=== PATIENT | female | born 1990 | race Caucasian/White ===

== ENCOUNTER 2020-09-17 09:19 | Outpatient (REF) | payer OTHER, SELFPAY ==
[2020-09-17 12:03] LABS: HBc Num1 0.07 S/CO (0.00-0.79); HIV AB/AG Nonreactive (Nonreactive); HIV Num 1 0.18 S/CO (0.00-0.99); Hepatitis B Core Antibody Nonreactive (Nonreactive)
[2020-09-18 04:03] LABS: Syphilis Screen Nonreactive (Nonreactive)
[2020-09-22 11:32] LABS: CT PCR NOT DETECTED (Not Detect.); NG PCR NOT DETECTED (Not Detect.)
== END 2020-09-17 09:20 | disposition home or self-care (01) ==
LOC: HO.HMGCLDS 09:19
PROVIDERS: PCP Internal Medicine; Visit Provider Internal Medicine
DX: Z01.419 Encounter for gynecological examination (general) (routine) without abnormal findings (principal); F41.1 Generalized anxiety disorder
CPT/HCPCS: 86704; 86780; 87389; 87491; 87591

== ENCOUNTER 2020-09-17 11:14 | Outpatient (REF) | payer OTHER, SELFPAY | END 2020-09-17 11:15 | disposition home or self-care (01) | LOC: HO.LAB 11:14 | PROVIDERS: Visit Provider Internal Medicine | DX: Z01.419 Encounter for gynecological examination (general) (routine) without abnormal findings (principal); F41.1 Generalized anxiety disorder | CPT/HCPCS: 88142 ==

== ENCOUNTER 2021-01-17 15:04 | Emergency (ER) | payer OTHER, SELFPAY ==
--- NOTE | ~2021-01-17 | CT_ITS ---
EXAMINATION: CT ABDOMEN AND PELVIS WITH CONTRAST CLINICAL INFORMATION: Right lower quadrant pain COMPARISON: None TECHNIQUE: Multidetector volumetric images were obtained from the superior aspect of the liver through the pubic symphysis following administration 85 mL of Omnipaque 350 intravenous contrast. Sagittal and coronal reformatted images were obtained on the technologist's workstation. Oral contrast: No This CT examination was performed using dose optimization techniques as appropriate, variously including the following: *Automated exposure control *Adjustment of mA and/or kV according to patient size (this includes techniques or standardized protocols for targeted exams where dose is matched to indication/reason for exam; i.e. extremities or head) *Use of iterative reconstruction technique DLP: 453 mGy-cm FINDINGS: LUNG BASES: The visualized lung bases are unremarkable. LIVER, GALLBLADDER, AND BILIARY TREE: The liver is normal in size, shape, and attenuation. No focal hepatic lesion or biliary ductal dilatation is present. The gallbladder is unremarkable with no evidence of radiopaque gallstones, gallbladder wall thickening, or obvious pericholecystic inflammatory changes. PANCREAS: Unremarkable. SPLEEN: Unremarkable. ADRENAL GLANDS: Unremarkable. KIDNEYS AND URETERS: The kidneys are normal in size, shape, and attenuation. No hydronephrosis, hydroureter, or calculi seen. No perinephric stranding. BLADDER: Unremarkable. GASTROINTESTINAL TRACT: The small and large bowel are unremarkable. The appendix is unremarkable. ABDOMINAL WALL: There is asymmetric abnormal expansion of the right rectus fracture in the lower abdomen and pelvis. The appearance is most suggestive of a a rectus hematoma this measures 7.5 cm transverse by 2.8 cm AP by 15 cm craniocaudal. There is some hyperdensity consistent with blood products but no active extravasation of contrast from the inferior epigastric artery which appears patent. LYMPH NODES: Normal. VASCULAR: Normal caliber abdominal aorta.. PELVIC VISCERA: 3.2 cm left renal cyst, a benign physiologic finding in a reproductive age female patient for which no imaging follow-up is required. Normal right ovary. Normal CT appearance of the uterus. OSSEOUS STRUCTURES: Minimal grade 1 anterolisthesis of L5 on S1. CT/CT abdomen pelvis w con IMPRESSION: There is asymmetric abnormal expansion of the right rectus muscle compared to the left with heterogeneous high density, most consistent with the rectus hematoma. This measures 7.5 x 2.8 x 15 cm. Recommend follow-up to confirm resolution.
[2021-01-17 15:13] VITALS: BP 133/93; PULSE 106; RESP 20; TEMP 36.9; O2SAT 100; BMI 22.4
[2021-01-17 15:50] LABS: MANUAL DIFF FLAG NO
[2021-01-17 15:53] LABS: Basophils Percent Auto 0.3 % (0-2); Eosinophils Absolute Auto 0.1 X10*3/uL (0.0-0.4); Eosinophils Percent Auto 0.4 % (0-4); Hematocrit 40.2 % (37-47); Hemoglobin 13.9 g/dl (12.0-16.0); Imm Gran Abs Auto 0.05 X10*3/uL (0.00-0.03); Imm Gran Pct Auto 0.4 % (0.0-0.4); Lymphocytes Absolute Auto 1.8 X10*3/uL (1.2-4.9); Lymphocytes Percent Auto 13.9 % (20-40); Mean Corpuscular HGB Conc 34.6 g/dl (31.0-35.0); Mean Corpuscular Hemoglobin 30.3 pg (27.0-33.0); Mean Corpuscular Volume 87.8 fL (80-98); Mean Platelet Volume 10.1 fL (9.4-12.3); Monocytes Absolute Auto 0.8 X10*3/uL (0.1-1.2); Monocytes Percent Auto 5.7 % (2-11); Neutrophils Absolute Auto 10.5 X10*3/uL (2.0-8.3); Neutrophils Percent Auto 79.3 % (45-73); Platelet Count 299 X10*3/uL (160-400); Red Blood Count 4.58 X10*6/uL (4.20-5.50); Red Cell Distribution Width 12.1 % (11.0-16.0); White Blood Count 13.2 X10*3/uL (4.8-10.8)
[2021-01-17 15:58] LABS: Glucose Urine UA NEG (NEG); Leukocyte Esterase Urine NEG (NEG); Nitrite Urine NEG (NEG); Urine Blood NEG (NEG); Urine Ketones NEG (NEG); Urine Protein NEG (NEG-TRACE)
[2021-01-17 16:01] LABS: Appearance Urine CLEAR; Color Urine YELLOW
[2021-01-17 16:02] LABS: UPreg QC Valid YES; Urine Pregnancy NEGATIVE (NEGATIVE)
[2021-01-17 16:15] LABS: Alanine Aminotransferase 26 U/L (0-31); Albumin Level 4.7 g/dL (3.5-5.0); Alkaline Phosphatase 55 U/L (39-117); Anion Gap 14 (12-20); Aspartate Amino Transferase 37 U/L (5-31); Bilirubin Direct 0.3 mg/dL (0.0-0.5); Bilirubin Total 0.7 mg/dL (0.0-1.0); Blood Urea Nitrogen 13 mg/dL (9-16); Calcium 9.3 mg/dL (8.4-10.2); Carbon Dioxide 25 mmol/L (22-29); Chloride 102 mmol/L (96-108); Creatinine Clr Calc Pharmacy 85.6; Estimated Glomerular Filt Rate > 60; Glucose Random 85 mg/dL (60-115); Lipase 9 U/L (8-78); Potassium 3.7 mmol/L (3.3-5.1); Sodium 137 mmol/L (135-145); Total Protein 7.4 g/dL (6.5-8.0)
--- NOTE | 2021-01-17 16:38 | ED_ITS ---
HPI - Abdominal Pain General Chief Complaint: Abdominal Pain Stated Complaint: Abdominal pain RLQ Time Seen by Provider: 01/17/21 16:30 Source: patient Mode of arrival: ambulatory Limitations: no limitations History of Present Illness HPI narrative: Pleasant 28-year-old female with history of A0 with retained products of conception in 2016 requiring D&C aside from this has history of anxiety not currently taking a medication presents ambulatory via triage with complaint of right lower quadrant pain states felt unwell yesterday this morning was doing a workout and felt a sharp pain directly afterwards. P ain described as sharp worsening with certain movements and on the right side lower quadrant. Denies any vomiting or diarrhea some nausea due to the pain. No symptoms no vaginal bleeding or discharge. Related Data Home Medications Medication Instructions Recorded Confirmed bupropion HCl 150 mg 24 hr tablet, 150 mg PO QAM 09/17/20 09/17/20 extended release Previous Rx's Medication Instructions Recorded norethindrone acetate 1 mg-ethinyl 1 tab PO DAILY #63 tab 09/17/20 estradiol 20 mcg tablet acetaminophen [Athenol] 650 mg PO .T.i.d. PRN #20 tab 01/17/21 oxycodone-acetaminophen [Endocet] 1 tab PO Q8H PRN #10 tab 01/17/21 Allergies Allergy/AdvReac Type Severity Reaction Status Date / Time blueberry Allergy Intermediate HIVES Unverified 07/02/20 18:22 Sulfa (Sulfonamide Allergy Unknown immunity Verified 03/17/20 00:00 Antibiotics) sulfamethoxazole AdvReac Unknown Verified 01/17/21 15:17 [From Bactrim] trimethoprim [From Bactrim] AdvReac Unknown Verified 01/17/21 15:17 blueberries as a fruit, not Allergy Unknown hives/urtic Uncoded 03/17/20 00:00 [place] Review of Systems Review of Systems Constitutional: No Weight loss, No Fever, No Chills, No Night Sweats, No Fatigue, No Malaise ENT/Mouth: No Hearing loss, No Ear Pain, No Nasal Congestion, No Sinus Pain, No Hoarseness, No sore throat, No Rhinorrhea, No Swallowing Difficulty Eyes: No Eye Pain, No Swelling, No Redness, No Foreign Body, No Discharge, No Vision Changes Cardiovascular: No Chest Pain, No SOB, No Dyspnea on Exertion, No Orthopnea, No Edema, No Palpitations Respiratory: No Cough, No Sputum, No Wheezing, No Smoke Exposure, No Dyspnea Gastrointestinal: + Nausea, No Vomiting, No Diarrhea, No Constipation, + abdominal Pain, No Hematochezia, No Melena Genitourinary: No Dysuria, No Urinary Frequency, No Hematuria, No Urinary Incontinence, No Urgency, No Flank Pain, No Urinary Flow Changes, No Hesitancy Musculoskeletal: No joint pain, No Myalgias, No Joint Swelling Skin: No Skin Lesions, No rash Neuro: No Weakness, No Numbness, No Paresthesias, No Loss of Consciousness, No Dizziness, No Headache Psych: No Social Issues Heme/Lymph: No Bruising, No Bleeding,No Lymphadenopathy Endocrine: No Polyuria, No Polydipsia, No Temperature Intolerance Yes all other systems are reviewed and are negative Physical Exam Vital Signs: Vital Signs: Last Vital Signs Temp 99.7 F 01/17/21 16:45 Pulse 105 H 01/17/21 18:15 Resp 16 01/17/21 18:15 BP 114/65 01/17/21 18:15 Pulse Ox 98 01/17/21 18:15 Body Mass Index 22.4 Reviewed Const: General: cooperative and healthy appearing; No acute distress or intoxicated appearing Nutritional Appearance: average body habitus Orientation/consciousness: patient oriented x3 HENMT: Head: Yes normal to inspection Ears: hearing grossly normal bilaterally Eyes: General: appearance normal, both eyes and all related structures Vis ual Zaidi: normal visual zaidi by confrontation Neck: Neck: Yes normal visual inspection, No positive Brudzinski's sign, No positive Kernig's sign and No tender Thyroid: Thyroid normal Chest: Chest palpation & inspection: normal inspection of the chest Resp: Effort & Inspection: normal respiratory effort Auscultation: clear to auscultation bilaterally Cardio: Jugular venous distension: no JVD Rhythm: regular rhythm Heart sounds: S1 normal heart sound present and S2 normal heart sound present GI: Inspection: Yes normal to inspection Palpation (GI): Tenderness to palpation present (GI) in the RLQ; Patel's sign negative Percussion: Yes normal to percussion Auscultation: normal bowel sounds : General: Yes no CVA tenderness Back/Spine/Pelvis: Back: no CVA tenderness Skin: General skin exam: no rashes or lesions noted Neuro: General: patient oriented x3 Extrem: General: Yes normal to inspection Course Consultations Consultation #1: Case discussed with general surgery Dr. Huertas; CT findings reviewed recommendation for activity limitations, avoiding NSAID and precautions with outpatient follow-up no immediate intervention needed. Overall self- limiting injury. MDM - Abdominal Pain Differential Diagnosis Differential diagnosis: Likely abdominal pain and acute appendicitis; Unlikely aortic dissection, bowel perforation, calculus of kidney, constipation, diverticulitis, endometriosis, gastroenteritis, mesenteric ischemia, ovarian cyst, peptic ulcer disease, renal colic and small bowel obstruction Medical Records Attestation: I reviewed the patient's medical records. Lab Data Attestation: I reviewed the patient's lab results. Result diagrams: 01/17/21 15:33 01/17/21 15:33 Labs: Lab Results 01/17/21 01/17/21 01/17/21 Range/Units 15:33 15:33 15:33 WBC 13.2 H (4.8-10.8) X10*3/uL RBC 4.58 (4.20-5.50) X10*6/uL Hgb 13.9 (12.0-16.0) g/dl Hct 40.2 (37-47) % MCV 87.8 (80-98) fL MCH 30.3 (27.0-33.0) pg MCHC 34.6 (31.0-35.0) g/dl RDW 12.1 (11.0-16.0) % Plt Count 299 (160-400) X10*3/uL MPV 10.1 (9.4-12.3) fL Immature Gran % (Auto) 0.4 (0.0-0.4) % Neut % (Auto) 79.3 H (45-73) % Lymph % (Auto) 13.9 L (20-40) % [place] % (Auto) 5.7 (2-11) % Eos % (Auto) 0.4 (0-4) % Baso % (Auto) 0.3 (0-2) % Lymph # (Auto) 1.8 (1.2-4.9) X10*3/uL [place] # (Auto) 0.8 (0.1-1.2) X10*3/uL Eos # (Auto) 0.1 (0.0-0.4) X10*3/uL Baso # (Auto) 0.0 (0.0-0.2) X10*3/uL Abs Immat Gran (auto) 0.05 H (0.00-0.03) X10*3/uL Absolute Neuts (auto) 10.5 H (2.0-8.3) X10*3/uL Absolute Nucleated RBC 0.000 (0.0-0.012) X10*3/uL Nucleated RBC % (auto) 0.0 (0.0-0.2) /100WBC Hold Blue Top SEE NOTE Sodium 137 (135-145) mmol/L Potassium 3.7 (3.3-5.1) mmol/L Chloride 102 (96-108) mmol/L Carbon Dioxide 25 (22-29) mmol/L Anion Gap 14 (12-20) BUN 13 (9-16) mg/dL Creatinine 0.78 (0.5-1.4) mg/dL Estim Creat Clear Calc 85.6 Estimated GFR > 60 Random Glucose 85 (60-115) mg/dL Calcium 9.3 (8.4-10.2) mg/dL Total Bilirubin 0.7 (0.0-1.0) mg/dL Direct Bilirubin 0.3 (0.0-0.5) mg/dL AST 37 H (5-31) U/L ALT 26 (0-31) U/L Alkaline Phosphatase 55 (39-117) U/L Total Protein 7.4 (6.5-8.0) g/dL Albumin 4.7 (3.5-5.0) g/dL Lipase 9 (8-78) U/L Urine Color Urine Appearance Urine pH (5.0-8.0) Ur Specific [place] (1.005-1.025) Urine Protein (NEG-TRACE) MG/DL Urine Glucose (UA) (NEG) MG/DL Urine Ketones (NEG) MG/DL Urine Blood (NEG) Urine Nitrite (NEG) Ur Leukocyte Esterase (NEG) Urine Test (NEGATIVE) 01/17/21 01/17/21 Range/Units 15:33 15:33 WBC (4.8-10.8) X10*3/uL RBC (4.20-5.50) X10*6/uL Hgb (12.0-16.0) g/dl Hct (37-47) % MCV (80-98) fL MCH (27.0-33.0) pg MCHC (31.0-35.0) g/dl RDW (11.0-16.0) % Plt Count (160-400) X10*3/uL MPV (9.4-12.3) fL Immature Gran % (Auto) (0.0-0.4) % Neut % (Auto) (45-73) % Lymph % (Auto) (20-40) % [place] % (Auto) (2-11) % Eos % (Auto) (0-4) % Baso % (Auto) (0-2) % Lymph # (Auto) (1.2-4.9) X10*3/uL [place] # (Auto) (0.1-1.2) X10*3/uL Eos # (Auto) (0.0-0.4) X10*3/uL Baso # (Auto) (0.0-0.2) X10*3/uL Abs Immat Gran (auto) (0.00-0.03) X10*3/uL Absolute Neuts (auto) (2.0-8.3) X10*3/uL Absolute Nucleated RBC (0.0-0.012) X10*3/uL Nucleated RBC % (auto) (0.0-0.2) /100WBC Hold Blue Top Sodium (135-145) mmol/L Potassium (3.3-5.1) mmol/L Chloride (96-108) mmol/L Carbon Dioxide (22-29) mmol/L Anion Gap (12-20) BUN (9-16) mg/dL Creatinine (0.5-1.4) mg/dL Estim Creat Clear Calc Estimated GFR Random Glucose (60-115) mg/dL Calcium (8.4-10.2) mg/dL Total Bilirubin (0.0-1.0) mg/dL Direct Bilirubin (0.0-0.5) mg/dL AST (5-31) U/L ALT (0-31) U/L Alkaline Phosphatase (39-117) U/L Total Protein (6.5-8.0) g/dL Albumin (3.5-5.0) g/dL Lipase (8-78) U/L Urine Color YELLOW Urine Appearance CLEAR Urine pH 6.0 (5.0-8.0) Ur Specific [place] 1.020 (1.005-1.025) Urine Protein NEG (NEG-TRACE) MG/DL Urine Glucose (UA) NEG (NEG) MG/DL Urine Ketones NEG (NEG) MG/DL Urine Blood NEG (NEG) Urine Nitrite NEG (NEG) Ur Leukocyte Esterase NEG (NEG) Urine Test NEGATIVE (NEGATIVE) Imaging Data Abdominal/pelvis CT: Radiologist's impression: [address] [id number] Scan ReportSigned Patient: Nando Bowser#: [id number]: 1990Acct:[id number]/Sex: 30 / FADM Date: 01/17/21Loc: EDAttst[address] Dr: Ordering Physician: Anders Johnson NP Date of Service: 01/17/21 Procedure(s): CT abdomen pelvis w con Accession Number(s): [id number] cc: Anders Johnson TRAFFIC CIRCUIT ENGINEER~ EXAMINATION: CT ABDOMEN AND PELVIS WITH CONTRAST CLINICAL INFORMATION: Right lower quadrant pain COMPARISON: None TECHNIQUE: Multidetector volumetric images were obtained from the superior aspect of the liver through the pubic symphysis following administration 85 mL of Omnipaque 350 intravenous contrast. Sagittal and coronal reformatted images were obtained on the technologist's workstation. Oral contrast: No This CT examination was performed using dose optimization techniques as appropriate, variously including the following: *Automated exposure control *Adjustment of mA and/or kV according to patient size (this includes techniques or standardized protocols for targeted exams where dose is matched to indication/reason for exam; i.e. extremities or head) *Use of iterative reconstruction technique DLP: 453 mGy-cm FINDINGS: LUNG BASES: The visualized lung bases are unremarkable. LIVER, GALLBLADDER, AND BILIARY TREE: The liver is normal in size, shape, and attenuation. No focal hepatic lesion or biliary ductal dilatation is present. The gallbladder is unremarkable with no evidence of radiopaque gallstones, gallbladder wall thickening, or obvious pericholecystic inflammatory changes. PANCREAS: Unremarkable. SPLEEN: Unremarkable. ADRENAL GLANDS: Unremarkable. KIDNEYS AND URETERS: The kidneys are normal in size, shape, and attenuation. No hydronephrosis, hydroureter, or calculi seen. No perinephric stranding. BLADDER: Unremarkable. GASTROINTESTINAL TRACT: The small and large bowel are unremarkable. The appendix is unremarkable. ABDOMINAL WALL: There is asymmetric abnormal expansion of the right rectus fracture in the lower abdomen and pelvis. The appearance is most suggestive of a a rectus hematoma this measures 7.5 cm transverse by 2.8 cm AP by 15 cm craniocaudal. There is some hyperdensity consistent with blood products but no active extravasation of contrast from the inferior epigastric artery which appears patent. LYMPH NODES: Normal. VASCULAR: Normal caliber abdominal aorta.. PELVIC VISCERA: 3.2 cm left renal cyst, a benign physiologic finding in a reproductive age female patient for which no imaging follow-up is required. Normal right ovary. Normal CT appearance of the uterus. OSSEOUS STRUCTURES: Minimal grade 1 anterolisthesis of L5 on S1. CT/CT abdomen pelvis w con IMPRESSION: There is asymmetric abnormal expansion of the right rectus muscle compared to the left with heterogeneous high density, most consistent with the rectus hematoma. This measures 7.5 x 2.8 x 15 cm. Recommend follow-up to confirm resolution. Dictated By:XIN ZUNIGA MDSigned By:<Electronically signed by XIN ZUNIGA MD in OV>01/17/21 1749 DD/ 1636TD/TT: Assessment Coordinator: JOCY Discharge Plan Discharge Clinical Impression: Injury of muscle of abdomen Hematoma of rectus sheath Qualifiers: Encounter type: initial encounter Qualified Code(s): S30.1XXA - Contusion of abdominal wall, initial encounter Patient Disposition: Home, Self-Care Instructions: Muscle Strain (ED), Hematoma (ED) Additional Instructions: Cold compresses No strenuous activity Avoid nonsteroidal anti-inflammatory medications such as ibuprofen, Aleve Take Tylenol for pain that is mild For severe pain take oxycodone Return to emergency room if you have any fever, nausea, vomiting or worsening pain Otherwise follow-up with outpatient provider as discussed Thank you Prescriptions: New oxycodone-acetaminophen [Endocet] 5-325 mg tablet 1 tab PO Q8H PRN (Reason: pain) Qty: 10 RF: 0 acetaminophen [Athenol] 325 mg tablet 650 mg PO .T.i.d. PRN (Reason: pain) Qty: 20 RF: 0 No Action bupropion HCl [Wellbutrin XL] 150 mg tablet extended release 24 hr 150 mg PO QAM RF: 0 norethindrone ac-eth estradiol [Loestrin 11/04 ()] 1-20 mg-mcg tablet 1 tab PO DAILY Qty: 63 RF: 3 Referrals: Ramon Jensen MD [Physician] - 1 week Stand Alone Forms: Work/School Release PMFSH Past Medical History Medical History Annual physical exam Benign heart murmur Depression ABRIL (generalized anxiety disorder) Post depression Vitamin B 12 deficiency Vitamin D deficiency Surgical History History of dilation and curettage History of tooth extraction Family History Family History (Updated 08/04/20 @ 13:20 by Sharifa Max, RMA, PIN MACHINE TENDER) Father Medical history non-contributory Mother History of ITP Cirrhosis Head injury Maternal Grandmother Cancer Maternal Grandfather No problems noted. Paternal Grandfather No problems noted. Paternal Grandmother No problems noted. Sister No problems noted. Daughter No problems noted. Social History Social History (Updated 09/17/20 @ 08:59 by Ksenia Grider MD) Alcohol intake: never Smoking Status: Current every day smoker Use of substances other than those prescribed or required for medical reasons: No Advance Directives: No Advance Directives Information Provided: No
[2021-01-17 16:45] VITALS: BP 130/91; PULSE 104; RESP 16; TEMP 37.6; O2SAT 100
[2021-01-17 16:57] VITALS: RESP 14
[2021-01-17] MEDS: 0.9 % Sodium Chloride 1,000 ML 999 ML IV (16:57)
[2021-01-17] MEDS: ondansetron HCL 4 MG/2 ML VIAL IVPUSH (16:57)
[2021-01-17] MEDS: Morphine Sulfate 4 MG/ML CARTRIDGE IVPUSH (16:57)
[2021-01-17 17:01] VITALS: BP 132/80; PULSE 117; RESP 16; O2SAT 100
[2021-01-17 18:03] VITALS: RESP 14
[2021-01-17 18:15] VITALS: BP 114/65; PULSE 105; RESP 16; O2SAT 98
== END 2021-01-17 19:06 | disposition home or self-care (01) ==
PROVIDERS: Emergency Provider Internal Medicine
DX: S39.001A Unspecified injury of muscle, fascia and tendon of abdomen, initial encounter (principal); S30.1XXA Contusion of abdominal wall, initial encounter; Y93.B9 Activity, other involving muscle strengthening exercises; Y92.019 Unspecified place in single-family (private) house as the place of occurrence of the external cause; Y99.9 Unspecified external cause status
CPT/HCPCS: 36415; 74177; 80053; 80076; 81003; 81025; 82248; 83690; 85025; 96361; 96374; 96375; 99284; 99285; J2270; J2405

== ENCOUNTER → 2021-01-20 10:15 | Outpatient (BNVA) | payer OTHER, SELFPAY | PROVIDERS: Visit Provider Surgery ==

== ENCOUNTER 2021-06-22 18:06 | Outpatient (REF) | payer OTHER, SELFPAY | END 2021-06-22 18:07 | disposition home or self-care (01) | LOC: HO.LNP 18:06 | PROVIDERS: Visit Provider Internal Medicine | DX: Z20.822 Contact with and (suspected) exposure to COVID-19 (principal); J06.9 Acute upper respiratory infection, unspecified | CPT/HCPCS: U0003; U0005 ==

== ENCOUNTER 2021-10-06 16:43 | Outpatient (REF) | payer OTHER, SELFPAY ==
[2021-10-06 17:32] LABS: Influenza A PCR NEGATIVE (Negative); Influenza B PCR NEGATIVE (Negative); Resp Syncy Virus RNA Qual PCR NEGATIVE (Negative); SARS COV2 PCR INHOUSE NEGATIVE (Negative)
== END 2021-10-06 16:44 | disposition home or self-care (01) ==
LOC: HO.LNP 16:43
PROVIDERS: Visit Provider Physician Assistant Medical
DX: Z20.822 Contact with and (suspected) exposure to COVID-19 (principal); J06.9 Acute upper respiratory infection, unspecified
CPT/HCPCS: 0241U

== ENCOUNTER 2022-07-09 09:52 | Outpatient (REF) | payer OTHER, SELFPAY ==
[2022-07-09 11:11] LABS: MANUAL DIFF FLAG NO
[2022-07-09 11:20] LABS: Basophils Percent Auto 0.5 % (0-2); Eosinophils Absolute Auto 0.1 X10*3/uL (0.0-0.4); Eosinophils Percent Auto 2.3 % (0-4); Hematocrit 40.3 % (37.0-47.0); Hemoglobin 13.6 g/dl (12.0-16.0); Imm Gran Abs Auto 0.02 X10*3/uL (0.00-0.03); Imm Gran Pct Auto 0.3 % (0.0-0.4); Lymphocytes Absolute Auto 2.4 X10*3/uL (1.2-4.9); Lymphocytes Percent Auto 39.2 % (20-40); Mean Corpuscular HGB Conc 33.7 g/dl (31.0-35.0); Mean Corpuscular Hemoglobin 29.1 pg (27.0-33.0); Mean Corpuscular Volume 86.1 fL (80.0-98.0); Mean Platelet Volume 10.1 fL (9.4-12.3); Monocytes Absolute Auto 0.6 X10*3/uL (0.1-1.2); Monocytes Percent Auto 9.7 % (2-11); Neutrophils Absolute Auto 2.9 x10*3/uL (2.0-8.3); Platelet Count 305 X10*3/uL (160-400); Red Blood Count 4.68 X10*6/uL (4.20-5.50); Red Cell Distribution Width 12.6 % (11.0-16.0); White Blood Count 6.1 X10*3/uL (4.8-10.8)
[2022-07-09 11:32] LABS: Alanine Aminotransferase 18 U/L (0-31); Albumin Level 4.6 g/dL (3.5-5.0); Alkaline Phosphatase 63 U/L (39-117); Anion Gap 13 (12-20); Aspartate Amino Transferase 18 U/L (5-31); Bilirubin Total 0.4 mg/dL (0.0-1.0); Blood Urea Nitrogen 11 mg/dL (9-16); Calcium 9.4 mg/dL (8.4-10.2); Carbon Dioxide 24 mmol/L (22-29); Chloride 106 mmol/L (96-108); Cholesterol 192 mg/dL; Estimated Glomerular Filt Rate > 60; Glucose Fasting 88 mg/dL (60-99); HDL Cholesterol 48 mg/dL; LDL Cholesterol Calculated 134 mg/dl; Potassium 4.4 mmol/L (3.3-5.1); Sodium 139 mmol/L (135-145); Total Protein 7.2 g/dL (6.5-8.0); Triglycerides 53 mg/dL
[2022-07-09 12:22] LABS: Erythrocyte Sedimentation Rate 10 MM/HR (0-20)
== END 2022-07-09 09:53 | disposition home or self-care (01) ==
LOC: HO.HMGCLDS 09:52
PROVIDERS: PCP Internal Medicine; Visit Provider Internal Medicine
DX: Z00.00 Encounter for general adult medical examination without abnormal findings (principal)
CPT/HCPCS: 36415; 80053; 80061; 85025; 85652

== ENCOUNTER 2022-07-20 10:27 | Outpatient (REF) | payer OTHER, SELFPAY ==
--- NOTE | ~2022-07-20 | US_ITS ---
Indication: Pain and swelling in the right axillary region EXAMINATION: Directed ultrasound right axillary region. The patient directs the piano mover to the right axillary region. There is a prominent lymph node noted here. 2.6 x 0.7 x 1.5 cm. The cortex does not appear abnormally thickened. No fluid collection. No mass otherwise is seen. The left axillary region is scanned by the piano mover as well. Again prominent lymph nodes. One measuring 2.3 x 0.9 x 0.6 cm. Other 1.8 x 0.5 x 1.2 cm. US/US extremity nonvascular dunlap IMPRESSION: A prominent lymph node is noted in the right axillary region.. No fluid collection is identified. No obvious mass. Correlation recommended clinically. If further evaluation is warranted recommend CT. It should be noted the breast tissue is not scanned on this study
== END 2022-07-20 10:28 | disposition home or self-care (01) ==
LOC: HO.HMGCX 10:27
PROVIDERS: PCP Internal Medicine; Visit Provider Internal Medicine
DX: Z00.00 Encounter for general adult medical examination without abnormal findings (principal); R59.0 Localized enlarged lymph nodes
CPT/HCPCS: 76882

== ENCOUNTER 2022-07-27 08:29 | Outpatient (REF) | payer OTHER, SELFPAY ==
--- NOTE | ~2022-07-27 | MM_ITS ---
EXAMINATION: MM DIAGNOSTIC DIGITAL BREAST TOMOSYNTHESIS, BILATERAL US DIAGNOSTIC ULTRASOUND BREAST, BILATERAL CLINICAL INFORMATION: 31-year-old with axillary fullness, possible adenopathy. No prior breast imaging. No known family history breast cancer. The lifetime risk of breast cancer based on the Tyrer-Cuzick Model is 11%. COMPARISON: Right axillary ultrasound 07/20/2022. No prior mammography. TECHNIQUE: Digital breast tomosynthesis is performed in both the craniocaudal and mediolateral oblique views along with computer-aided detection (CAD). Synthesized 2D images are generated from the tomosynthesis. Ultrasound is performed using grayscale imaging and color Doppler without and with harmonics. Both axilla are evaluated. In addition, upper left breast and upper right breast are also interrogated for further assessment mammographic findings. FINDINGS: Mammography: The breasts are heterogeneously dense, which may obscure small masses (ACR BI-RADS breast composition Category c). Breast tissue composition borders on average fibroglandular. There is no architectural abnormality or abnormal calcifications. The axilla and skin contours are unremarkable. No skin thickening or coarsening of the Henrik's ligaments. Left breast has small smooth circumscribed nodule mid 11:00 position approximately 0.6 cm. Right breast has oval smooth mass anterior 11:00 position measuring approximately 1 cm. Ultrasound: Ultrasound bilateral axilla demonstrates no lymphadenopathy. There are expected nodes seen in both axilla with normal kayla architecture and color flow. There is no abnormally enlarged or thickened node. Ultrasound right breast demonstrates simple cyst 11:00 position 3 cm from nipple corresponding to the finding on mammography. Cyst measures 1.0 x 0.6 cm with increased through-transmission of sound and no associated septation or solid component or color flow. There are 2 tiny adjacent satellite cyst. Ultrasound left breast demonstrates small solid nodule 11:00 position 6 cm from nipple measuring 0.5 x 0.4 cm. No increased or decreased through transmission of sound. Margins are smooth. This corresponds to finding on mammography. Management: Results are discussed with the patient at time of visit. The left breast nodule is most likely a fibroadenoma. Management options discussed. Plan is for short interval follow-up left breast ultrasound in 6 months to confirm stability. Bilateral axillary fullness may be managed based on the clinical impression. MM/MM tomosynthesis diagnostic BI IMPRESSION: Right: -No mammographic evidence of malignancy. -No axillary adenopathy. -Incidental simple cyst anterior 11:00 position. Left: -Subcentimeter solid nodule 11:00 position, likely fibroadenoma. -No axillary adenopathy. ASSESSMENT: BI-RADS 3: Probably Benign RECOMMENDATION: 1. Bilateral axillary fullness may be managed based on the clinical impression as needed. 2. Targeted left breast ultrasound in 6 months. This patient's information was entered into a reminder system with a target due date for their next breast imaging.
== END 2022-07-27 08:30 | disposition home or self-care (01) ==
LOC: HO.MAMMO 08:29
PROVIDERS: PCP Internal Medicine; Visit Provider Internal Medicine
DX: R59.0 Localized enlarged lymph nodes (principal)
CPT/HCPCS: 76642; 77062; 77066

== ENCOUNTER 2022-08-15 08:47 | Outpatient (REF) | payer OTHER, SELFPAY ==
[2022-08-15 12:31] LABS: Syphilis Screen Nonreactive (Nonreactive)
[2022-08-15 13:49] LABS: CT PCR NOT DETECTED (Not Detect.); NG PCR NOT DETECTED (Not Detect.)
[2022-08-16 08:30] LABS: HIV AB/AG Nonreactive (Nonreactive); HIV Num 1 0.08 S/CO (0.00-0.99)
== END 2022-08-15 08:48 | disposition home or self-care (01) ==
LOC: HO.HMGCLDS 08:47
PROVIDERS: PCP Internal Medicine; Visit Provider Internal Medicine
DX: Z11.3 Encounter for screening for infections with a predominantly sexual mode of transmission (principal); Z11.4 Encounter for screening for human immunodeficiency virus [HIV]
CPT/HCPCS: 36415; 86780; 87389; 87491; 87591

== ENCOUNTER 2023-01-26 13:04 | Outpatient (REF) | payer OTHER, SELFPAY ==
--- NOTE | ~2023-01-26 | US_ITS ---
EXAMINATION: US DIAGNOSTIC ULTRASOUND BREAST, LEFT CLINICAL INFORMATION: 32-year-old for short interval six-month follow-up small probable benign nodule 11:00 left breast. No known family history breast cancer. TC score 11%. COMPARISON: Bilateral mammography and bilateral breast ultrasound 07/27/2022. TECHNIQUE: Ultrasound left breast is targeted to the upper breast using grayscale imaging and color Doppler. FINDINGS: The nodule for follow-up 11:00 position 6 cm from nipple is stable. This is round, mildly hypoechoic and measuring approximately 5 x 4 mm. There is no associated peripheral or internal color flow. No increased or decreased through transmission of sound. This may represent fibroadenoma or possibly a foam cyst with apocrine metaplasia. Will continue planned surveillance with next left breast ultrasound in 6 months (representing a 1 year follow-up exam). Results are provided to the patient at time of visit by the technologist. US/US breast LT limited IMPRESSION: Stable 5 mm nodule 11:00 left breast. ASSESSMENT: BI-RADS 3: Probably Benign RECOMMENDATION: Left breast ultrasound in 6 months. This patient's information was entered into a reminder system with a target due date for their next breast imaging.
== END 2023-01-26 13:05 | disposition home or self-care (01) ==
LOC: HO.MAMMO 13:04
PROVIDERS: PCP Internal Medicine; Visit Provider Internal Medicine
DX: N63.22 Unspecified lump in the left breast, upper inner quadrant (principal)
CPT/HCPCS: 76642

== ENCOUNTER 2023-05-30 11:51 | Outpatient (AMB) | payer OTHER, SELFPAY ==
--- NOTE | 2023-05-30 12:58 | AM.OFFWIN_ITS ---
Intake Vital Signs 05/30/23 12:59 Weight 137 lb BP 110/70 Blood Pressure Location Rt brachial Position Sitting Pulse 100 Pulse Source Pulse Oximeter Pulse Oximetry (%) 98 Oxygen Delivery Method Room Air Intake Visit Reasons: EP, Pain left side of neck lobby Intake Note: Patient here for pain on left side of neck, she states she gets weird pressure that comes over her head which comes and goes. no known injuries. Patient Tobacco Use Status: Never used Tobacco Allergies blueberry Allergy (Intermediate, Verified 05/30/23 13:00) HIVES Sulfa (Sulfonamide Antibiotics) Allergy (Unknown, Verified 05/30/23 13:00) immunity morphine Allergy (Verified 05/30/23 13:00) chest pressure, panic attack sulfamethoxazole [From Bactrim] Adverse Reaction (Verified 05/30/23 13:00) Unknown trimethoprim [From Bactrim] Adverse Reaction (Verified 05/30/23 13:00) Unknown blueberries as a fruit, not ju Allergy (Unknown, Uncoded 05/30/23 13:00) hives/urticaria Do you need a note to return to daycare/school/sports/work: No HPI EP, Pain left side of neck lobby HPI Details 32-year-old female patient presents today for a sick visit. She reports a 3 day history tenderness underneath her left jaw line. She denies any tooth or mouth pain. She recently went to the dentist for a cleaning with no acute findings. She denies any fever or chills. She denies any pain with swallowing. She reports radiates over her head and causes pressure that is intermittent. She reports increasing lethargy over the last year. Denies any new meds. Smokes nicotine via vape. FORMERLY [facility] Medical History Annual physical exam Benign heart murmur Depression ABRIL (generalized anxiety disorder) Post depression Rectus sheath hematoma Vitamin B 12 deficiency Vitamin D deficiency Surgical History History of dilation and curettage History of tooth extraction Family History Father Medical history non-contributory Mother History of ITP Cirrhosis Head injury Maternal Grandmother Cancer Maternal Grandfather No problems noted. Paternal Grandfather No problems noted. Paternal Grandmother No problems noted. Sister No problems noted. Daughter No problems noted. Social History Household Members Other:: , 4 y/o and 18 y/o stepson, well balanced, works from home Housing: House Alcohol intake: never Patient Tobacco Use Status: Never used Tobacco e-Cigarette/Vaping Use: Currently Using Current occupational status: employed Cognitive needs: No Hearing needs: No Vision needs: Yes Review of Systems Const All systems reviewed & are unremarkable except as noted in HPI and below Physical Exam Vital Signs: Last Vital Signs Pulse 100 05/30/23 12:59 BP 110/70 05/30/23 12:59 Pulse Ox 98 05/30/23 12:59 Oxygen Delivery Method Room Air 05/30/23 12:59 Const General: cooperative and no acute distress Nutritional Appearance: average body habitus Orientation/consciousness: patient oriented x3 Limitations: no limitations HEENT Head: Yes normal to inspection Ears: hearing grossly normal bilaterally, external ears normal and TM abnormal wth effusion purulent on the left and erythematous on the left General nose exam: Normal external nose present, Normal nares present and Normal nasal mucous membranes and turbinates present Face and sinus: Yes normal facial exam Face images: 1. tenderness Mouth: Normal oral and palatal mucosa present and moist mucous membranes Throat: Yes posterior oropharynx normal Neck Neck: Yes lymphadenopathy (left ant cervical) Thyroid: Thyroid normal Resp Effort & Inspection: normal respiratory effort and able to speak in complete sentences Skin General skin exam: no rashes or lesions noted Neuro General: patient oriented x3 and gait normal Extrem General: Yes capillary refill normal and Yes no clubbing, cyanosis or edema Psych Appearance: grossly normal Mental Status: mental status grossly normal Speech and movement: Normal speech and movement present Assessment & Plan Assessment & Plan (1) Neck pain on left side: Code(s): M54.2 - Cervicalgia Plan: Patient has tenderness on the left side of her neck under her jaw line. She has very mild left anterior cervical lymphadenopathy. This also could be muscular in nature as it seems to involve her sternocleidomastoid. She also has a left otitis media with purulence effusion. This could be the source of her pain. I will start her on antibiotics today for this. It does not appear she has an odontogenic infection. If she does not improve with treatment or if symptoms worsen she should return to the clinic for further evaluation. She agrees to plan. (2) Left otitis media with effusion: Code(s): H65.92 - Unspecified nonsuppurative otitis media, left ear (3) Fatigue: Code(s): R53.83 - Other fatigue Qualifiers: Fatigue type: unspecified Qualified Code(s): R53.83 - Other fatigue Plan: I am going to order some given her symptoms today, and report ongoing and worsening fatigue over the last year. I would like her to follow-up with her PCP Dr. Grider for this. Orders: Orders Complete Blood Count Auto Diff Today R53.83 - Other fatigue TSH reflex Free T4 Today R53.83 - Other fatigue Basic Metabolic Panel Today R53.83 - Other fatigue Medications: New amoxicillin-pot clavulanate 875-125 mg 1 tab PO BID 7 days 14 tabs 0RF H65.92 - Unspecified nonsuppurative otitis media, left ear Coding Level of Care Code Est Pt Level 3 (18077) Diagnoses Neck pain on left side M54.2 Left otitis media with effusion H65.92 Fatigue R53.83 Fatigue type: unspecified
[2023-05-30 12:59] VITALS: BP 110/70; PULSE 100; O2SAT 98
== END 2023-05-30 13:42 | disposition home or self-care (01) ==
PROVIDERS: PCP Internal Medicine; Visit Provider Nurse Practitioner Family
DX: M54.2 Cervicalgia (principal); H65.92 Unspecified nonsuppurative otitis media, left ear; R53.83 Other fatigue
CPT/HCPCS: 99213

== ENCOUNTER 2023-05-30 13:35 | Outpatient (REF) | payer OTHER, SELFPAY ==
[2023-05-30 16:05] LABS: MANUAL DIFF FLAG NO
[2023-05-30 16:14] LABS: Basophils Absolute Auto 0.1 X10*3/uL (0.0-0.2); Basophils Percent Auto 0.9 % (0-2); Eosinophils Absolute Auto 0.1 X10*3/uL (0.0-0.4); Eosinophils Percent Auto 0.9 % (0-4); Hematocrit 40.8 % (37.0-47.0); Imm Gran Abs Auto 0.02 X10*3/uL (0.00-0.03); Imm Gran Pct Auto 0.4 % (0.0-0.4); Lymphocytes Absolute Auto 1.2 X10*3/uL (1.2-4.9); Lymphocytes Percent Auto 20.6 % (20-40); Mean Corpuscular HGB Conc 34.3 g/dl (31.0-35.0); Mean Corpuscular Hemoglobin 29.8 pg (27.0-33.0); Mean Corpuscular Volume 86.8 fL (80.0-98.0); Mean Platelet Volume 10.2 fL (9.4-12.3); Monocytes Absolute Auto 0.5 X10*3/uL (0.1-1.2); Monocytes Percent Auto 9.1 % (2-11); Neutrophils Absolute Auto 3.8 x10*3/uL (2.0-8.3); Neutrophils Percent Auto 68.1 % (45-73); Platelet Count 244 X10*3/uL (160-400); Red Cell Distribution Width 11.9 % (11.0-16.0); White Blood Count 5.6 X10*3/uL (4.8-10.8)
[2023-05-30 16:36] LABS: Anion Gap 13 (12-20); Blood Urea Nitrogen 7 mg/dL (9-16); Calcium 9.2 mg/dL (8.4-10.2); Carbon Dioxide 26 mmol/L (22-29); Chloride 104 mmol/L (96-108); Estimated Glomerular Filt Rate > 60; Glucose Random 83 mg/dL (60-115); Potassium 3.8 mmol/L (3.3-5.1); Sodium 139 mmol/L (135-145)
[2023-05-30 16:55] LABS: TSH reflex Free T4 1.65 uIU/mL (0.32-4.0)
== END 2023-05-30 13:36 | disposition home or self-care (01) ==
LOC: HO.HMGCLDS 13:35
PROVIDERS: PCP Internal Medicine; Visit Provider Nurse Practitioner Family
DX: R53.83 Other fatigue (principal)
CPT/HCPCS: 36415; 80048; 84443; 85025

== ENCOUNTER 2023-07-27 13:24 | Outpatient (REF) | payer OTHER, SELFPAY ==
--- NOTE | ~2023-07-27 | US_ITS ---
EXAMINATION: US DIAGNOSTIC ULTRASOUND BREAST, LEFT CLINICAL INFORMATION: Follow-up small complicated cyst versus fibroadenoma left breast, 11:00 axis, 6 cm from the nipple.. COMPARISON: 01/26/2023, 07/27/2022, mammography dated 07/27/2022. TECHNIQUE: Ultrasound of the breast is performed with real-time muse scale imaging and color Doppler. Specific attention was given to the 11:00 axis of the left breast. FINDINGS: There is redemonstration of a rounded circumscribed cyst or fibroadenoma with low-level internal echoes, no internal color Doppler signal, good through transmission, circumscribed margins, measuring a stable 5 x 4 x 4 cm. There has been absolutely no change in this finding since the prior 2 ultrasounds dating back to 09/26/2022. This is stable over one year. Recommend one-year follow-up targeted left breast ultrasound to ensure stability over 2 years, which will establish benignity. Results were provided to the patient at time of visit by the technologist. 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 This demonstrates one-year stability, with maximal measurement of 5 mm. Recommend 1 year follow-up targeted left breast ultrasound to ensure stability and establish benignity. ASSESSMENT: BI-RADS 3: Probably Benign RECOMMENDATION: Diagnostic targeted left sonography at time of next annual exam, due in 12 months.
== END 2023-07-27 13:25 | disposition home or self-care (01) ==
LOC: HO.MAMMO 13:24
PROVIDERS: PCP Internal Medicine; Visit Provider Internal Medicine
DX: N63.22 Unspecified lump in the left breast, upper inner quadrant (principal)
CPT/HCPCS: 76642

== ENCOUNTER → 2023-07-27 13:30 | Outpatient (BNV) | payer OTHER, SELFPAY | PROVIDERS: PCP Internal Medicine; Visit Provider Radiology Diagnostic Radiology | DX: N60.09 Solitary cyst of unspecified breast (principal) | CPT/HCPCS: 76642 ==

== ENCOUNTER 2023-09-30 11:04 | Outpatient (REF) | payer OTHER, SELFPAY ==
[2023-09-30 13:38] LABS: Appearance Urine Clear; Color Urine Yellow; Glucose Urine UA Negative (Negative); Leukocyte Esterase Urine Negative (Negative); Nitrite Urine Negative (Negative); Specific Gravity - Urine 1.025 (1.005-1.025); Urine Blood Negative (Negative); Urine Ketones Negative (Negative); Urine Protein Negative (Neg-Trace)
== END 2023-09-30 11:05 | disposition home or self-care (01) ==
LOC: HO.HMGCLDS 11:04
PROVIDERS: PCP Internal Medicine; Visit Provider Internal Medicine
DX: R30.0 Dysuria (principal)
CPT/HCPCS: 81003

== ENCOUNTER 2023-12-26 10:20 | Outpatient (AMB) | payer OTHER, SELFPAY ==
--- NOTE | 2023-12-26 10:22 | AM.OFFWIN_ITS ---
Intake Vital Signs 12/26/23 10:25 Weight 136 lb BP 108/68 Blood Pressure Location Lt brachial Position Sitting Pulse 68 Temp 98.7 F Temp Source Oral Pulse Oximetry (%) 98 Oxygen Delivery Method Room Air Intake Visit Reasons: EP Ear, throat pain, cold like symptoms Intake Note: Patient here for ear, sore throat, cough and fatigued that started last monday. Patient Tobacco Use Status: Never used Tobacco Allergies blueberry Allergy (Intermediate, Verified 12/26/23 10:) HIVES Sulfa (Sulfonamide Antibiotics) Allergy (Unknown, Verified 12/26/23 10:) immunity morphine Allergy (Verified 12/26/23:) chest pressure, panic attack sulfamethoxazole [From Bactrim] Adverse Reaction (Verified 12/26/23:) Unknown trimethoprim [From Bactrim] Adverse Reaction (Verified 12/26/23:) Unknown blueberries as a fruit, not ju Allergy (Unknown, Uncoded 12/26/23 10:) hives/urticaria Do you need a note to return to daycare/school/sports/work: No HPI HPI Comments History of Present Illness Details She presents to [facility] with cold symptoms Pt was feeling better but sick again + fever last night; 100.1 L ear pain, ST, cough, fatigue She has tried dayquil and nyquil No urine or bowel movement symptoms. Denies abdominal pain Cough without phlegm She said slight sinus pressure + nasal discharge She said 4/10 pain PFSH Medical History Annual physical exam Benign heart murmur Depression ABRIL (generalized anxiety disorder) Post depression Rectus sheath hematoma Vitamin B 12 deficiency Vitamin D deficiency Surgical History History of dilation and curettage History of tooth extraction Family History Father Medical history non-contributory Mother History of ITP Cirrhosis Head injury Maternal Grandmother Cancer Maternal Grandfather No problems noted. Paternal Grandfather No problems noted. Paternal Grandmother No problems noted. Sister No problems noted. Daughter No problems noted. Social History Household Members Other:: , 4 y/o and 18 y/o stepson, well balanced, works from home Housing: House Alcohol intake: never Patient Tobacco Use Status: Never used Tobacco e-Cigarette/Vaping Use: Currently Using Current occupational status: employed Cognitive needs: No Hearing needs: No Vision needs: Yes Review of Systems Const Reports fatigue, Reports fever(s) and Reports headache(s) Eyes Denies blurry vision ENT Reports otalgia (L side), Reports headache(s), Reports nasal congestion, Reports nasal discharge, Reports sinus pressure, Reports sore throat and Denies throat swelling Card Denies chest pain and Denies dyspnea Resp Reports chest congestion, Reports cough, Denies dyspnea and Denies wheezing Musc Denies back pain Neuro Reports headache(s) Endo Reports fatigue Aller/Immun Denies throat swelling and Denies wheezing Physical Exam Vital Signs: Last Vital Signs Temp 98.7 F 12/26/23 10:25 Pulse 68 12/26/23 10:25 BP 108/68 12/26/23 10:25 Pulse Ox 98 12/26/23 10:25 Oxygen Delivery Method Room Air 12/26/23 10:25 General: Non-toxic, NAD. Speaking full sentences. Skin: Warm dry throughout Eye: EOMI HENT: Airway patent. Uvula midline. No pharyngeal erythema or edema. 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 Bilateral canals clear. + serous fluid bilaterally without TM erythematous, bulging or perforation. No TM perforation or hemotympanum noted. No significant sinus tenderness to palpation Respiratory: CTA bilaterally. No wheezes, rales or rhonchi Cardiac: RRR. No murmur MSK: Full ROM extremities. Neurology: A/O No aphasia or facial droop. Gait without abnormality Psych: Good mood and affect Results AMB Rapid Strep AMB Rapid Strep Negative Last Edit by KAROLINE Castro on 12/26/23 10:36 Assessment & Plan Assessment & Plan (1) Upper respiratory infection: Code(s): J06.9 - Acute upper respiratory infection, unspecified Qualifiers: URI type: unspecified viral URI Qualified Code(s): J06.9 - Acute upper respiratory infection, unspecified Plan: Patient seen and evaluated. Vitals stable Strep negative Her was seen earlier and had a flu/covid/rsv swab obtained; she deferred swab and will see what he comes back + for Discussed nasal steroid spray, nyquil/dayquil use Increase fluids/rest Tylenol for fever control discussed if + flu exposure, she is outside window for tamiflu tx If + covid exposure there is concern for covid and she should follow quarantine guidelines If symptoms persist x worsen for 1 week there is concern for evolving OM or bacterial sinusitis and recommend antibiotics Patient gave verbal understanding and had no additional questions or concerns at time of discharge All questions answered Orders: Orders AMB Rapid Strep Screen Today Z13.9 - Encounter for screening, unspecified Medications: New ipratropium bromide administer into each nostril 2 sprays intranasal TID 1 week 15 mL 0RF Coding Level of Care Code Est Pt Level 3 (08047) Diagnoses Viral upper respiratory tract infection J06.9 URI type: unspecified viral URI
[2023-12-26 10:25] VITALS: BP 108/68; PULSE 68; TEMP 37.1; O2SAT 98
== END 2023-12-26 11:17 | disposition home or self-care (01) ==
PROVIDERS: PCP Internal Medicine; Visit Provider Physician Assistant
DX: J06.9 Acute upper respiratory infection, unspecified (principal); J02.9 Acute pharyngitis, unspecified
CPT/HCPCS: 87880; 99213

== ENCOUNTER 2024-03-17 13:25 | Emergency (ER) | payer OTHER, SELFPAY ==
--- NOTE | ~2024-03-17 | CT_ITS ---
EXAMINATION: CT ABDOMEN AND PELVIS WITH CONTRAST CLINICAL INFORMATION: LLQ abdominal pain COMPARISON: CT abdomen/pelvis 01/17/2021 TECHNIQUE: Multidetector volumetric images were obtained from the superior aspect of the liver through the pubic symphysis following administration 85 mL of Omnipaque 350 intravenous contrast. Sagittal and coronal reformatted images were obtained on the technologist's workstation. Oral contrast: No This CT examination was performed using dose optimization techniques as appropriate, variously including the following: *Automated exposure control *Adjustment of mA and/or kV according to patient size (this includes techniques or standardized protocols for targeted exams where dose is matched to indication/reason for exam; i.e. extremities or head) *Use of iterative reconstruction technique DLP: 528 mGy-cm FINDINGS: LUNG BASES: The visualized lung bases are unremarkable. LIVER, GALLBLADDER, AND BILIARY TREE: The liver is normal in size, shape, and attenuation. No focal hepatic lesion or biliary ductal dilatation is present. The gallbladder is unremarkable with no evidence of radiopaque gallstones, gallbladder wall thickening, or obvious pericholecystic inflammatory changes. PANCREAS: Unremarkable. SPLEEN: Unremarkable. ADRENAL GLANDS: Unremarkable. KIDNEYS AND URETERS: The kidneys are normal in size, shape, and attenuation. No hydronephrosis, hydroureter, or calculi seen. No perinephric stranding. BLADDER: Unremarkable. GASTROINTESTINAL TRACT: The small and large bowel are unremarkable. 4 small appendicolith noted. The appendix remains normal in caliber (coronal image 23). ABDOMINAL WALL: No significant hernia is appreciated. LYMPH NODES: Diffuse mesenteric prominent lymph nodes are similar to 2020. No pathologically enlarged lymphadenopathy. VASCULAR: Unremarkable. PELVIC VISCERA: Normal CT appearance of the uterus. There is an irregular 2 cm peripherally enhancing lesion within the left ovary favored to represent a corpus luteal cyst. OSSEOUS STRUCTURES: Unremarkable. CT/CT abdomen pelvis w IV con IMPRESSION: 1. No acute intra-abdominal findings identified. 2. There is an irregular 2 cm peripherally enhancing lesion within the left ovary favored to represent a corpus luteal cyst. Fleischner guidelines were followed.
[2024-03-17 13:34] VITALS: BP 141/93; PULSE 97; RESP 18; TEMP 37.2; O2SAT 99; BMI 25.0
--- NOTE | 2024-03-17 13:37 | ED_ITS ---
HPI - General Adult General Chief complaint: Abdominal Pain Stated complaint: Lower abd pain Time Seen by Provider: 03/17/24 19:59 Source: patient Mode of arrival: ambulatory Limitations: no limitations History of Present Illness ED Provider: Vadim Hall PA-C HPI narrative: 33 yold female with pmh of anxeity presents to the ED for LLQ pain for one week with back pain. Patient state also fever of 101 at home. Patient denies any urinary symptoms, or vaginal discharge/lesions. Related Data Home Medications ?Medication ?Instructions ?Recorded ?Confirmed lamotrigine 100 mg tablet 100 mg PO DAILY 05/30/23 sertraline 100 mg tablet (Zoloft) 100 mg PO DAILY 05/30/23 Previous Rx's ?Medication ?Instructions ?Recorded acetaminophen 325 mg tablet 650 mg (2 x 325 mg) PO .T.i.d. PRN 01/17/21 (Athenol) pain #20 tabs condoms - female (FC2 Female #12 ea 02/10/21 Condom) ipratropium bromide 42 mcg (0.06 2 spray intranasal TID 1 week #15 12/26/23 %) nasal spray mL valacyclovir 500 mg tablet 500 mg PO BID #60 tabs 02/16/24 (Valtrex) cefuroxime axetil 500 mg tablet 500 mg PO BID #10 tabs 03/17/24 dicyclomine 10 mg capsule 10 mg PO TID #14 caps 03/17/24 Allergies Allergy/AdvReac Type Severity Reaction Status Date / Time blueberry Allergy Intermediate HIVES Verified 03/17/24 13:36 Sulfa (Sulfonamide Allergy Unknown immunity Verified 03/17/24 13:36 Antibiotics) morphine Allergy chest Verified 03/17/24 13:36 pressure, panic attack sulfamethoxazole AdvReac Unknown Verified 03/17/24 13:36 [From Bactrim] trimethoprim [From Bactrim] AdvReac Unknown Verified 03/17/24 13:36 blueberries as a fruit, not Allergy Unknown hives/urtic Uncoded 12/26/23 10:26 [place] Review of Systems 2 Review of Systems: LLQ abdominal pain Yes all other systems are reviewed and are negative PMFSH Past Medical History Medical History Annual physical exam Benign heart murmur Depression ABRIL (generalized anxiety disorder) Post depression Rectus sheath hematoma Vitamin B 12 deficiency Vitamin D deficiency Surgical History History of dilation and curettage History of tooth extraction Family History Family History Father Medical history non-contributory Mother History of ITP Cirrhosis Head injury Maternal Grandmother Cancer Maternal Grandfather No problems noted. Paternal Grandfather No problems noted. Paternal Grandmother No problems noted. Sister No problems noted. Daughter No problems noted. Social History Social History Household Members Other:: , 4 y/o and 18 y/o stepson, well balanced, works from home Housing: House Alcohol intake: never Patient Tobacco Use Status: Never used Tobacco e-Cigarette/Vaping Use: Currently Using Advance Directives: No Advance Directives Information Provided: No Current occupational status: employed Cognitive needs: No Hearing needs: No Vision needs: Yes Physical Exam ED Vital Signs: Vital Signs - 24 hr 03/17/24 13:34 03/17/24 19:48 03/17/24 20:08 Temperature 99.0 F 97.7 F 98.4 F Pulse Rate 97 106 H 94 Respiratory Rate 18 20 16 Blood Pressure 141/93 H 119/80 134/87 Pulse Oximetry 99 100 97 Oxygen Delivery Method Room Air Room Air Room Air 03/17/24 22:43 03/17/24 23:46 Temperature 99.5 F 99.5 F Pulse Rate 96 96 Respiratory Rate 16 16 Blood Pressure 124/74 124/74 Pulse Oximetry 97 97 Oxygen Delivery Method Room Air Room Air BMI result Body Mass Index 25.0 Const General: cooperative, healthy appearing, comfortable, no acute distress, well developed, alert, awake and Physically active Orientation/consciousness: oriented to person, oriented to place, oriented to time and patient oriented x3 HENMT Head: Yes normal to inspection, Yes No palpable skull fracture present, Yes normocephalic and Yes atraumatic Throat: Yes posterior oropharynx normal, Yes tonsils normal and Yes uvula midline Eyes General: appearance normal, both eyes and all related structures Neck Neck: Yes normal visual inspection, Yes full ROM, Yes no lymphadenopathy, Yes no meningeal signs, Yes trachea midline, Yes supple, No anterior neck swelling and No tender Chest Chest palpation & inspection: normal inspection of the chest and normal palpation of entire chest wall Resp Effort & Inspection: normal respiratory effort and able to speak in complete sentences Auscultation: clear to auscultation bilaterally Cardio Jugular venous distension: no JVD Heart sounds: S1 normal heart sound present and S2 normal heart sound present GI Inspection: Yes normal to inspection Palpation (GI): Soft to palpation, not firm, Tenderness to palpation present (GI) in the LLQ, no guarding and not rigid General: No CVA tenderness and Yes no CVA tenderness Back/Spine/Pelvis Back: no CVA tenderness, No CVA tenderness and No back tenderness Skin General skin exam: no rashes or lesions noted, elasticity normal and turgor normal Neuro General: oriented to person, oriented to place, oriented to time, patient oriented x3, gait normal, tone normal, moves all extremities, Normal light touch and pain sensation, no meningeal signs, no focal motor deficits, CN's II-XI intact bilaterally and normal sensation to monofilament Extrem General: Yes normal to inspection, Yes full ROM and Yes capillary refill normal Psych Appearance: grossly normal, well kempt and not disheveled Course Course Course Narrative: RME: Done by AMIRAH Hall. 33-year-old female presents to ED for left lower side abdominal pain, and low back pain for the past couple of days. Patient states fever of 101. Negative for any flank tenderness on palpation. Positive for left lower quadrant tenderness. Labs SARs UA ordered. Reevaluation(s) Reevaluation #1: Patient received in sign out from AMIRAH Fierro pending CT A/P. No acute findings noted. 2cm irregular lesion within left ovary likely corpus luteal cyst. Results discussed with patient and all questions answered. Patient describes pain as colicky, with radiation to lower back. UA notable for 1+ leukocytes and 1+ bacteria, patient reports history of UTIs in the past which have progressed to pyelonephritis. Discussed treatment with antibiotics which patient is agreeable to. Patient also requesting medication for discomfort, will send prescription for bentyl, and advised alternating Tylenol and ibuprofen. Return precautions discussed at bedside. Advised patient to follow up with PCP. Patient verbalized understanding of and agreement with plan. CT/CT abdomen pelvis w IV con IMPRESSION: 1. No acute intra-abdominal findings identified. 2. There is an irregular 2 cm peripherally enhancing lesion within the left ovary favored to represent a corpus luteal cyst. Fleischner guidelines were followed. Time: 23:07 Medications Administered Discontinued Medications Generic Name Dose Route Start Last Admin Trade Name [place] PRN Reason Stop Dose Admin Acetaminophen 650 mg 03/17/24 19:45 03/17/24 19:47 Acetaminophen 325 Mg Tablet PO 03/17/24 19:46 650 mg ONCE ONE Administration Sodium Chloride 1,000 mls @ 999 mls/hr 03/17/24 19:59 03/17/24 21:21 Ns IV 03/17/24 20:59 Infused .Q1H1M STA Infusion Iohexol 85 ml 03/17/24 20:51 03/17/24 20:52 Iohexol 350 Mg/Ml 100 Ml Infus..Btl IV 03/17/24 20:52 85 ml ONCE ONE Administration Ketorolac Tromethamine 30 mg 03/17/24 19:59 03/17/24 20:32 Ketorolac Tromethamine 30 Mg/Ml Vial IVPUSH 03/17/24 20:00 30 mg ONCE ONE Administration Medical Decision Making Medical Decision Making [facility] Narrative: 33 yold female presents to the ED for LLQ lower abdominal pain with fever. UA clean. negative. toradol ordered. Patient sent for abdominal CT scan. NO elevated WBC. positive for LLQ tenderness on palpaiton. SIgned out to DOUBLE CUTTER Lee. Differential Diagnosis Differential Diagnoses: The differential diagnosis associated with the presentation includes (diverticulitis, colitis, UTI, kidney stones) Admission/Observation Consideration of admission/observation: Escalation of care including admission/observation considered Lab Data [facility] Lab Attestation statement: I reviewed the patient's lab results. 03/17/24 13:43 03/17/24 13:43 Labs: Lab Results 03/17/24 03/17/24 Range/Units 13:43 13:54 WBC 6.3 (4.8-10.8) X10*3/uL RBC 4.57 (4.20-5.50) X10*6/uL Hgb 13.9 (12.0-16.0) g/dl Hct 39.8 (37.0-47.0) % MCV 87.1 (80.0-98.0) fL MCH 30.4 (27.0-33.0) pg MCHC 34.9 (31.0-35.0) g/dl RDW 13.3 (11.0-16.0) % Plt Count 282 (160-400) X10*3/uL MPV 9.5 (9.4-12.3) fL Immature Gran % (Auto) 0.3 (0.0-0.4) % Neut % (Auto) 52.7 (45-73) % Lymph % (Auto) 37.7 (20-40) % Dare % (Auto) 7.7 (2-11) % Eos % (Auto) 1.1 (0-4) % Baso % (Auto) 0.5 (0-2) % Lymph # (Auto) 2.4 (1.2-4.9) X10*3/uL Dare # (Auto) 0.5 (0.1-1.2) X10*3/uL Eos # (Auto) 0.1 (0.0-0.4) X10*3/uL Baso # (Auto) 0.0 (0.0-0.2) X10*3/uL Abs Immat Gran (auto) 0.02 (0.00-0.03) X10*3/uL Absolute Neuts (auto) 3.3 (2.0-8.3) x10*3/uL Absolute Nucleated RBC 0.000 (0.0-0.012) X10*3/uL Nucleated RBC % (auto) 0.0 (0.0-0.2) /100WBC Sodium 138 (135-145) mmol/L Potassium 3.7 (3.3-5.1) mmol/L Chloride 106 (96-108) mmol/L Carbon Dioxide 23 (22-29) mmol/L Anion Gap 13 (12-20) BUN 11 (9-16) mg/dL Creatinine 0.90 (0.5-1.4) mg/dL Estim Creat Clear Calc 78.5 Estimated GFR > 60 Random Glucose 92 (60-115) mg/dL Calcium 9.7 (8.4-10.2) mg/dL Total Bilirubin 0.4 (0.0-1.0) mg/dL AST 23 (5-31) U/L ALT 26 (0-31) U/L Alkaline Phosphatase 61 (39-117) U/L Total Protein 7.6 (6.5-8.0) g/dL Albumin 4.7 (3.5-5.0) g/dL Beta HCG, Quant < 2 mIU/mL Urine Color Yellow Urine Appearance Clear Urine pH 7.0 (5.0-9.0) Ur Specific [place] 1.025 (1.005-1.025) Urine Protein Negative (Neg-Trace) mg/dL Urine Glucose (UA) Negative (Negative) mg/dL Urine Ketones Negative (Negative) mg/dL Urine Blood Negative (Negative) Urine Nitrite Negative (Negative) Ur Leukocyte Esterase Small (1+) H (Negative) Urine RBC 0-2 (0-2) /HPF Urine WBC 0-5 (0-5) /HPF Ur Squamous Epith Cells 0-2 (0-2) /HPF Urine Bacteria 1+ (None Seen) Hyaline Casts 0-2 (0-2) /LPF Urine Test NEGATIVE (NEGATIVE) Influenza Type A (PCR) NEGATIVE (Negative) Influenza Type B (PCR) NEGATIVE (Negative) RSV RNA Qual (PCR) NEGATIVE (Negative) SARS-CoV-2 RNA (RT-PCR) NEGATIVE (Negative) Discharge Plan Discharge Clinical Impression: Abdominal pain Patient Disposition: Home, Self-Care Instructions: Abdominal Pain (ED) Additional Instructions: You have been evaluated in the emergency department today for abdominal pain. Your evaluation did not show evidence of medical conditions requiring emergent intervention at this time. Please schedule an appointment with your primary care physician within the next 2 days. Return to the emergency department if you experience worsening or uncontrolled pain, fevers 100.4? F or greater, recurrent vomiting, inability to tolerate food or fluids by mouth, bloody stools or vomit, black or tarry stools, or any other concerning symptoms. Prescriptions: New cefuroxime axetil 500 mg tablet 500 mg PO BID Qty: 10 0RF dicyclomine 10 mg capsule 10 mg PO TID Qty: 14 0RF No Action (DME) FC2 Female Condom Misc See Rx Instructions .ROUTE .MEDSUPPLY Qty: 12 8RF Rx Instructions: As directed valacyclovir [Valtrex] 500 mg tablet 500 mg PO BID Qty: 60 0RF acetaminophen [Athenol] 325 mg tablet 650 mg PO .T.i.d. PRN (Reason: pain) Qty: 20 0RF sertraline [Zoloft] 100 mg tablet 100 mg PO DAILY lamotrigine 100 mg tablet 100 mg PO DAILY ipratropium bromide 42 mcg (0.06 %) spray,non-aerosol 2 spray intranasal TID 7 Days Qty: 15 0RF Rx Instructions: administer into each nostril Interventions: ED Discharge Assessment Last Done: 03/17/24 23:46 Discharge Date/Time: 03/17/24 23:47 Print Language: Croatian
[2024-03-17 14:00] LABS: MANUAL DIFF FLAG NO
[2024-03-17 14:04] LABS: Basophils Percent Auto 0.5 % (0-2); Eosinophils Absolute Auto 0.1 X10*3/uL (0.0-0.4); Eosinophils Percent Auto 1.1 % (0-4); Hematocrit 39.8 % (37.0-47.0); Hemoglobin 13.9 g/dl (12.0-16.0); Imm Gran Abs Auto 0.02 X10*3/uL (0.00-0.03); Imm Gran Pct Auto 0.3 % (0.0-0.4); Lymphocytes Absolute Auto 2.4 X10*3/uL (1.2-4.9); Lymphocytes Percent Auto 37.7 % (20-40); Mean Corpuscular HGB Conc 34.9 g/dl (31.0-35.0); Mean Corpuscular Hemoglobin 30.4 pg (27.0-33.0); Mean Corpuscular Volume 87.1 fL (80.0-98.0); Mean Platelet Volume 9.5 fL (9.4-12.3); Monocytes Absolute Auto 0.5 X10*3/uL (0.1-1.2); Monocytes Percent Auto 7.7 % (2-11); Neutrophils Absolute Auto 3.3 x10*3/uL (2.0-8.3); Neutrophils Percent Auto 52.7 % (45-73); Platelet Count 282 X10*3/uL (160-400); Red Blood Count 4.57 X10*6/uL (4.20-5.50); Red Cell Distribution Width 13.3 % (11.0-16.0); White Blood Count 6.3 X10*3/uL (4.8-10.8)
[2024-03-17 14:05] LABS: Appearance Urine Clear; Color Urine Yellow; Glucose Urine UA Negative (Negative); Leukocyte Esterase Urine Small (1+) (Negative); Nitrite Urine Negative (Negative); Specific Gravity - Urine 1.025 (1.005-1.025); UMIC TRIGGER UACC YES; Urine Blood Negative (Negative); Urine Ketones Negative (Negative); Urine Protein Negative (Neg-Trace)
[2024-03-17 14:06] LABS: UPreg QC Valid YES; Urine Pregnancy NEGATIVE (NEGATIVE)
[2024-03-17 14:17] LABS: Bacteria Urine 1+ (None Seen); Hyaline Casts Urine 0-2 /LPF (0-2); RBC Urine 0-2 /HPF (0-2); Squamous Epithelial Cell Urine 0-2 /HPF (0-2); UACC Culture Trigger YES; WBC Urine 0-5 /HPF (0-5)
[2024-03-17 14:28] LABS: Alanine Aminotransferase 26 U/L (0-31); Albumin Level 4.7 g/dL (3.5-5.0); Alkaline Phosphatase 61 U/L (39-117); Anion Gap 13 (12-20); Aspartate Amino Transferase 23 U/L (5-31); Bilirubin Total 0.4 mg/dL (0.0-1.0); Blood Urea Nitrogen 11 mg/dL (9-16); Calcium 9.7 mg/dL (8.4-10.2); Carbon Dioxide 23 mmol/L (22-29); Chloride 106 mmol/L (96-108); Creatinine Clr Calc Pharmacy 78.5; Estimated Glomerular Filt Rate > 60; Glucose Random 92 mg/dL (60-115); Potassium 3.7 mmol/L (3.3-5.1); Sodium 138 mmol/L (135-145); Total Protein 7.6 g/dL (6.5-8.0)
[2024-03-17 14:29] LABS: HCG Quantitative < 2 mIU/mL
[2024-03-17 14:36] LABS: Influenza A PCR NEGATIVE (Negative); Influenza B PCR NEGATIVE (Negative); Resp Syncy Virus RNA Qual PCR NEGATIVE (Negative); SARS COV2 PCR INHOUSE NEGATIVE (Negative)
[2024-03-17] MEDS: Acetaminophen 325 MG TABLET 650 MG PO (19:47)
[2024-03-17 19:48] VITALS: BP 119/80; PULSE 106; RESP 20; TEMP 36.5; O2SAT 100
[2024-03-17 20:08] VITALS: BP 134/87; PULSE 94; RESP 16; TEMP 36.9; O2SAT 97
[2024-03-17] MEDS: Ketorolac Tromethamine 30 MG/ML VIAL IVPUSH (20:32)
[2024-03-17] MEDS: 0.9 % Sodium Chloride 1,000 ML 999 ML IV (20:32)
[2024-03-17] MEDS: iohexoL 350 MG/ML 100 ML INFUS..BTL 85 ML IV (20:52)
--- NOTE | 2024-03-17 21:08 | PC.NURSE ---
pt reports pain medication did not help, does not want anything else at this time d/t anxiety
[2024-03-17 22:43] VITALS: BP 124/74; PULSE 96; RESP 16; TEMP 37.5; O2SAT 97
[2024-03-17 23:46] VITALS: BP 124/74; PULSE 96; RESP 16; TEMP 37.5; O2SAT 97
== END 2024-03-17 23:47 | disposition home or self-care (01) ==
PROVIDERS: Physician Assistant; Emergency Provider Emergency Medicine; PCP Internal Medicine
DX: R10.32 Left lower quadrant pain (principal); R50.9 Fever, unspecified; M54.50 Low back pain, unspecified
CPT/HCPCS: 0241U; 36415; 74177; 80053; 81001; 81003; 81025; 84702; 85025; 87086; 96361; 96374; 99284; J1885; Q9967

== ENCOUNTER 2024-03-20 13:26 | Outpatient (AMB) | payer OTHER, SELFPAY ==
--- NOTE | 2024-03-20 13:32 | A.OFFPC_ITS ---
Vital Signs 03/20/24 13:33 Height 5 ft 3 in Weight 141 lb BMI 25.0 BP 104/66 Blood Pressure Location Lt brachial Position Sitting Pulse 100 Pulse Source Pulse Oximeter Pulse Oximetry (%) 98 Oxygen Delivery Method Room Air Intake Visit Reasons: [facility] [place] 03/17 Lower AB pain Intake Note: Pt is here today for ER follow up visit. Allergies blueberry Allergy (Intermediate, Verified 03/20/24 13:36) HIVES Sulfa (Sulfonamide Antibiotics) Allergy (Unknown, Verified 03/20/24 13:36) immunity morphine Allergy (Verified 03/20/24 13:36) chest pressure, panic attack sulfamethoxazole [From Bactrim] Adverse Reaction (Verified 03/20/24 13:36) Unknown trimethoprim [From Bactrim] Adverse Reaction (Verified 03/20/24 13:36) Unknown blueberries as a fruit, not ju Allergy (Unknown, Uncoded 03/20/24 13:36) hives/urticaria Medication List - Last Reconciled 03/20/24 by Ksenia Grider MD acetaminophen (Athenol) 650 mg (2 x 325 mg) PO .T.i.d. PRN cefuroxime axetil 500 mg PO BID condoms - female (FC2 Female Condom) As directed dicyclomine 10 mg PO TID ipratropium bromide 2 sprays intranasal TID 1 week lamotrigine 100 mg PO DAILY valacyclovir (Valtrex) 500 mg PO BID Tobacco use date assessed: 03/20/24 Dental Screening Dental Screen Date: 03/20/24 Did you have a dental visit in the last 12 months?: Yes Did you have a dental problem in the last 6 months where you did not have access to dental care?: No Was dental information given to patient?: Patient has dentist HPI [facility] [place] 03/17 Lower AB pain HPI Details Pt is for f/u ER for LLQ acute pain. She had negative abd/pelvic CT, labs including urine culture. Patient has been feeling better still reports intermittent discomfort. Patient has not seen a telephone interviewer since she delivered her son 8 years ago. She reports regular menses. [facility] Medical History Rectus sheath hematoma Annual physical exam Benign heart murmur Post depression Depression Vitamin B 12 deficiency Vitamin D deficiency ABRIL (generalized anxiety disorder) Surgical History History of dilation and curettage History of tooth extraction Family History Father Medical history non-contributory Mother History of ITP Cirrhosis Head injury Maternal Grandmother Cancer Maternal Grandfather No problems noted. Paternal Grandfather No problems noted. Paternal Grandmother No problems noted. Sister No problems noted. Daughter No problems noted. Social History Household Members Other:: , 4 y/o and 18 y/o stepson, well balanced, works from home Housing: House Alcohol intake: never Patient Tobacco Use Status: Never used Tobacco e-Cigarette/Vaping Use: Currently Using service: No Current occupational status: employed Cognitive needs: No Hearing needs: No Vision needs: Yes Questionnaire PHQ-9 Over the last 2 weeks, how often have you been bothered by any of the following problems? 1. Little interest or pleasure in doing things: several days 2. Feeling down, depressed, or hopeless: several days 3. Trouble falling or staying asleep, or sleeping too much: more than half the days 4. Feeling tired or having little energy: several days 5. Poor appetite or overeating: nearly every day 6. Feeling bad about yourself - or that you are a failure or have let yourself or your family down: several days 7. Trouble concentrating on things, such as reading the newspaper or watching television: several days 8. Moving or speaking so slowly that other people could have noticed. Or the opposite - being so fidgety or restless that you have been moving around a lot more than usual: several days 9. Thoughts that you would be better off or of hurting yourself in some way: not at all Total score: 11 Depression Screening Interpretation: Positive (Patient is established with psy chiatrist and psychology) Depression Screening Follow-up: Existing condition and In treatment Depression Screening Done: Yes Source: Developed by Drs. Herrera Bauer, Junie Singh, Ruben Goddard and colleagues, with an educational anatoliy from [employer] Thrive Questionnaire Date Thrive assessed: 03/20/24 I am a: Patient What is your living situation today?: I have a steady place to live Within the past 12 months, did the food you bought not last and you didn't have the money to get more?: Sometimes True Within the past 12 months, did you worry whether your food would run out before you got money to buy more?: Sometimes True Do you have trouble paying for medicines?: No Do you have trouble getting transportation to medical appointments?: No Do you have trouble paying your heating and electricity bill?: No Do you have trouble taking care of your child, family member or friend?: No Do you have trouble with day-to-day activities such as bathing, preparing meals, shopping, managing finances, etc.?: Yes Are you currently unemployed and looking for a job?: No Are you interested in more education?: Yes Please select the resources that you would like help with: Education THRIVE Score: 2 AUDIT C Alcohol Use Questionnaire (AUDIT-C) 1. How often do you have a drink containing alcohol?: Monthly or less 2. How many drinks containing alcohol do you have on a typical day when you are drinking?: 1 or 2 3. How often do you have six or more drinks on one occasion?: Never Total Score: 1 ABRIL-7 AMB Questionnaire ABRIL-7 Date ABRIL - 7 assessed: 03/20/24 Feeling nervous, anxious, or on edge: 2 = More than half the days Not being able to stop or control worryin = More than half the days Worrying too much about different things: 3 = Nearly every day Trouble relaxin = Nearly every day Being so restless that it is hard to sit still: 2 = More than half the days Becoming easily annoyed or irritable: 2 = More than half the days Feeling afraid as if something awful might happen: 2 = More than half the days Total ABRIL-7 score (0-4 normal; 5-9 mild; 10-14 moderate; 15-21 severe): 16 Source: Developed by Drs. Herrera Bauer, Junie Singh, Ruben Goddard and colleagues, with an educational anatoliy from [employer] Review of Systems Const All systems reviewed & are unremarkable except as noted in HPI and below ENT Reports no additional complaints Card Reports no additional complaints Resp Reports no additional complaints GI Reports no additional complaints Reports no additional complaints Physical exam (Primary Care) Vital Signs: Last Vital Signs Pulse 100 03/20/24 13:33 BP 104/66 03/20/24 13:33 Pulse Ox 98 03/20/24 13:33 Oxygen Delivery Method Room Air 03/20/24 13:33 BMI result Body Mass Index 25.0 Tobacco/Smoking Status: Tobacco use Status Tobacco use date assessed 03/20/24 03/20/24 13:39 Patient Tobacco Use Status Never used Tobacco 03/20/24 13:39 e-Cigarette/Vaping Use Currently Using 03/20/24 13:33 Depression Screening Interpretation: Positive (Patient is established with psychiatrist and psychology) Depression Screening Follow-up: Existing condition and In treatment Thrive Assessment: Date of Thrive Assessment Date Thrive assessed 07/08/22 03/20/24 13:33 Const General: no acute distress HENMT Head: Yes normal to inspection Throat: Yes posterior oropharynx normal Resp Effort & Inspection: normal respiratory effort Auscultation: clear to auscultation bilaterally Cardio Rhythm: regular rhythm Heart sounds: S1 normal heart sound present and S2 normal heart sound present GI Inspection: Yes normal to inspection Palpation (GI): Soft to palpation Percussion: Yes normal to percussion Assessment and Plan Assessment & Plan (1) Annual physical exam: Code(s): Z00.00 - Encounter for general adult medical examination without abnormal findings (2) Left lower quadrant abdominal pain: Comment: Negative abdominal and pelvic CT 04/08 Code(s): R10.32 - Left lower quadrant pain Plan: Supportive care discussed with the patient . she was advised to schedule an appointment for routine pelvic exam and Pap smear with her finished goods inspector at home Orders: Orders Lipid Panel Today Z00.00 - Encounter for general adult medical examination without abnormal findings TSH reflex Free T4 Today Z00.00 - Encounter for general adult medical examination without abnormal findings Referrals PLUMBING INSTRUCTOR Referral Z00.00 - Encounter for general adult medical examination without abnormal findings Medications: Refilled valacyclovir (Valtrex) 500 mg PO BID 60 tabs 6RF Discontinued cefuroxime axetil Discontinued Reason: Change Referral Type 500 mg PO BID 10 tabs 0RF Coding Level of Care Code Est Pt Level 3 (23414) Diagnoses Annual physical exam Z00.00 Left lower quadrant abdominal pain R10.32
[2024-03-20 13:33] VITALS: BP 104/66; PULSE 100; O2SAT 98; BMI 25.0
== END 2024-03-20 15:04 | disposition home or self-care (01) ==
PROVIDERS: PCP Internal Medicine; Visit Provider Internal Medicine
DX: R10.32 Left lower quadrant pain (principal)
CPT/HCPCS: 99213

== ENCOUNTER 2024-04-27 11:45 | Outpatient (AMB) | payer OTHER, SELFPAY ==
--- NOTE | 2024-04-27 11:51 | MHC.OFFWIV ---
Intake Vital Signs 04/27/24 11:52 Height 5 ft 3 in Weight 138 lb BMI 24.4 BP 92/60 Blood Pressure Location Lt brachial Position Sitting Pulse 75 Pulse Source Pulse Oximeter Temp 98.3 F Temp Source Oral Pulse Oximetry (%) 97 Oxygen Delivery Method Room Air Intake Visit Reasons: EP ?Strep Intake Note: Pt is here today c/o vomiting, nausea, taste buds different: Pt's daughter recently dx's with strep Patient Tobacco Use Status: Never used Tobacco Allergies blueberry Allergy (Intermediate, Verified 04/27/24 11:55) HIVES Sulfa (Sulfonamide Antibiotics) Allergy (Unknown, Verified 04/27/24 11:55) immunity morphine Allergy (Verified 04/27/24 11:55) chest pressure, panic attack sulfamethoxazole [From Bactrim] Adverse Reaction (Verified 04/27/24 11:55) Unknown trimethoprim [From Bactrim] Adverse Reaction (Verified 04/27/24 11:55) Unknown blueberries as a fruit, not ju Allergy (Unknown, Uncoded 04/27/24 11:55) hives/urticaria Medication List - Last Reconciled 04/27/24 by Eugenio Leal MD azithromycin (Zithromax Z-Keegan) take 500 mg today (day 1), then 250 mg for 4 days (days 2-5) PO 5 days condoms - female (FC2 Female Condom) As directed lamotrigine 100 mg PO DAILY sertraline 50 mg PO DAILY valacyclovir (Valtrex) 500 mg PO BID HPI EP ?Strep HPI Details Sore throat for the past 2 and half days. Daughter was diagnosed with strep. Mild fatigue, muscle aches No cough. Mild nasal congestion and mild left ear discomfort. No nausea or vomiting. No fevers or chills. [facility] Medical History Rectus sheath hematoma Annual physical exam Benign heart murmur Post depression Depression Vitamin B 12 deficiency Vitamin D deficiency ABRIL (generalized anxiety disorder) Surgical History History of dilation and curettage History of tooth extraction Family History Father Medical history non-contributory Mother History of ITP Cirrhosis Head injury Maternal Grandmother Cancer Maternal Grandfather No problems noted. Paternal Grandfather No problems noted. Paternal Grandmother No problems noted. Sister No problems noted. Daughter No problems noted. Social History Household Members Other:: , 4 y/o and 18 y/o stepson, well balanced, works from home Housing: House Alcohol intake: never Patient Tobacco Use Status: Never used Tobacco e-Cigarette/Vaping Use: Currently Using service: No Current occupational status: employed Cognitive needs: No Hearing needs: No Vision needs: Yes Review of Systems Const Details: See HPI Physical Exam Vital Signs: Last Vital Signs Temp 98.3 F 04/27/24 11:52 Pulse 75 04/27/24 11:52 BP 92/60 04/27/24 11:52 Pulse Ox 97 04/27/24 11:52 Oxygen Delivery Method Room Air 04/27/24 11:52 BMI result Body Mass Index 24.4 Const General: no acute distress and well developed Nutritional Appearance: well nourished Orientation/consciousness: patient oriented x3 HEENT Other: Mild posterior pharyngeal erythema without exudate Mild TM erythema bilaterally with no bulging or pus or fluid Minimal nasal congestion Mild shotty lymphadenopathy anterior cervical chain Head: Yes normocephalic and Yes atraumatic Eyes General: appearance normal, both eyes and all related structures Pupils: Equal, round and reactive pupils present EOM: EOMs intact bilaterally Resp Effort & Inspection: normal respiratory effort Auscultation: clear to auscultation bilaterally Cardio Rate: regular rate Rhythm: regular rhythm Heart sounds: S1 normal heart sound present, S2 normal heart sound present, no gallops, no murmurs and no rubs Neuro General: patient oriented x3 and gait normal Cranial nerves: Yes Equal, round and reactive pupils present Psych Affect: normal affect Results AMB Rapid Strep AMB Rapid Strep Negative Last Edit by Karie Trimble CMA on 04/27/24 12:00 Results Reviewed Results Reviewed: Laboratory Last Values Strep Scn [facility] Negative 04/27/24 11:58 Assessment & Plan Assessment & Plan (1) Viral illness: Code(s): B34.9 - Viral infection, unspecified Plan: Viral illness There is no antibiotic medication for viruses. They must run their course. Most average 5-7 days but 7-10 days is not uncommon and up to 14 days is still possible. A cough is often the last symptom to resolve and this can last for weeks in some cases. Rest Hydrate well - Drink plenty of fluids. Especially water. Tylenol or ibuprofen for muscle aches, headache, fever/discomfort Can use [id number] medications for cough such as Delsym or DayQuil. Prescription cough medicines have been shown to be no better. Can not rule out possible COVID/flu/RSV so will send nasal swab to lab. Patient was exposed to strep - daughter has strep. No obvious indications of strep infection at this time and strep test is negative. However, if patient is not improving in a few days, she can take Z-Keegan which will be sent to her pharmacy and she will hold off on taking otherwise. Orders: Orders SARS-CoV2/FLU/RSV Today B34.9 - Viral infection, unspecified, Z20.822 - Contact with and (suspected) exposure to COVID-19 AMB Rapid Strep Screen Today Z13.9 - Encounter for screening, unspecified Medications: New azithromycin (Zithromax Z-Keegan) take 500 mg today (day 1), then 250 mg for 4 days (days 2-5) PO 5 days 6 tabs 0RF Coding Level of Care Code Est Pt Level 3 (85132) Diagnoses Viral illness B34.9
[2024-04-27 11:52] VITALS: BP 92/60; PULSE 75; TEMP 36.8; O2SAT 97; BMI 24.4
== END 2024-04-27 13:40 | disposition home or self-care (01) ==
PROVIDERS: PCP Internal Medicine; Visit Provider Family Medicine
DX: B34.9 Viral infection, unspecified (principal); J02.9 Acute pharyngitis, unspecified
CPT/HCPCS: 87880; 99051; 99213

== ENCOUNTER 2024-04-27 12:12 | Outpatient (REF) | payer OTHER, SELFPAY ==
[2024-04-27 13:34] LABS: Influenza A PCR NEGATIVE (Negative); Influenza B PCR NEGATIVE (Negative); Resp Syncy Virus RNA Qual PCR NEGATIVE (Negative); SARS COV2 PCR INHOUSE NEGATIVE (Negative)
== END 2024-04-27 12:13 | disposition home or self-care (01) ==
LOC: HO.LAB 12:12
PROVIDERS: Visit Provider Family Medicine
DX: Z20.822 Contact with and (suspected) exposure to COVID-19 (principal); B34.9 Viral infection, unspecified
CPT/HCPCS: 0241U

== ENCOUNTER 2024-05-23 12:00 | Outpatient (AMB) | payer OTHER, SELFPAY ==
[2024-05-23 12:04] VITALS: BP 126/76; PULSE 92; O2SAT 99; BMI 24.2
--- NOTE | 2024-05-23 12:04 | MHC.PC.OV ---
Vital Signs 05/23/24 12:04 Height 5 ft 3 in Weight 136 lb 6 oz BMI 24.2 BP 126/76 Blood Pressure Location Lt brachial Position Sitting Pulse 92 Pulse Source Pulse Oximeter Pulse Oximetry (%) 99 Oxygen Delivery Method Room Air Intake Visit Reasons: Regular Checkup per Dr. Patterson's request. Intake Note: Pt is here today for her Annual Physical. Allergies blueberry Allergy (Intermediate, Verified 05/23/24 12:05) HIVES Sulfa (Sulfonamide Antibiotics) Allergy (Unknown, Verified 05/23/24 12:05) immunity morphine Allergy (Verified 05/23/24 12:05) chest pressure, panic attack sulfamethoxazole [From Bactrim] Adverse Reaction (Verified 05/23/24 12:05) Unknown trimethoprim [From Bactrim] Adverse Reaction (Verified 05/23/24 12:05) Unknown blueberries as a fruit, not ju Allergy (Unknown, Uncoded 04/27/24 11:55) hives/urticaria Medication List - Last Reconciled 05/23/24 by Ksenia Grider MD condoms - female (FC2 Female Condom) As directed lamotrigine 100 mg PO DAILY sertraline 50 mg PO DAILY valacyclovir (Valtrex) 500 mg PO BID Tobacco use date assessed: 05/23/24 Dental Screening Dental Screen Date: 05/23/24 Did you have a dental visit in the last 12 months?: Yes Did you have a dental problem in the last 6 months where you did not have access to dental care?: No Was dental information given to patient?: Patient has dentist HPI Regular Checkup per Dr. Patterson's request. HPI Details Pt presents for [facility] Medical History (Updated 05/23/24 @ 13:09 by Ksenia Grider MD) Rectus sheath hematoma Annual physical exam Benign heart murmur Post depression Depression Vitamin B 12 deficiency Vitamin D deficiency ABRIL (generalized anxiety disorder) Surgical History History of dilation and curettage History of tooth extraction Family History Father Medical history non-contributory Mother History of ITP Cirrhosis Head injury Maternal Grandmother Cancer Maternal Grandfather No problems noted. Paternal Grandfather No problems noted. Paternal Grandmother No problems noted. Sister No problems noted. Daughter No problems noted. Social History Household Members Other:: , 4 y/o and 18 y/o stepson, well balanced, works from home Housing: House Alcohol intake: never Patient Tobacco Use Status: Never used Tobacco e-Cigarette/Vaping Use: Currently Using service: No Current occupational status: employed Cognitive needs: No Hearing needs: No Vision needs: Yes Questionnaire PHQ-9 Over the last 2 weeks, how often have you been bothered by any of the following problems? 1. Little interest or pleasure in doing things: several days 2. Feeling down, depressed, or hopeless: several days 3. Trouble falling or staying asleep, or sleeping too much: nearly every day 4. Feeling tired or having little energy: more than half the days 5. Poor appetite or overeating: nearly every day 6. Feeling bad about yourself - or that you are a failure or have let yourself or your family down: more than half the days 7. Trouble concentrating on things, such as reading the newspaper or watching television: not at all 8. Moving or speaking so slowly that other people could have noticed. Or the opposite - being so fidgety or restless that you have been moving around a lot more than usual: several days 9. Thoughts that you would be better off or of hurting yourself in some way: not at all Total score: 13 Depression Screening Interpretation: Positive (ESTABLISHED WITH A PSYCHIATRIST AND THERAPY) Depression Screening Follow-up: Existing condition and In treatment Depression Screening Done: Yes 44680 - PHQ-9 Billing: Yes Source: Developed by Drs. Herrera Bauer, Junie Singh, Ruben Goddard and colleagues, with an educational anatoliy from [employer]. Thrive Questionnaire Date Thrive assessed: 05/23/24 I am a: Patient What is your living situation today?: I have a steady place to live Within the past 12 months, did the food you bought not last and you didn't have the money to get more?: Sometimes True Within the past 12 months, did you worry whether your food would run out before you got money to buy more?: Sometimes True Do you have trouble paying for medicines?: No Do you have trouble getting transportation to medical appointments?: No Do you have trouble paying your heating and electricity bill?: No Do you have trouble taking care of your child, family member or friend?: No Do you have trouble with day-to-day activities such as bathing, preparing meals, shopping, managing finances, etc.?: Yes Are you currently unemployed and looking for a job?: No Are you interested in more education?: No Please select the resources that you would like help with: Food Currently or been in a relationship where the following occur: I choose not to answer THRIVE Score: 2 AUDIT C Alcohol Use Questionnaire (AUDIT-C) 1. How often do you have a drink containing alcohol?: Monthly or less 2. How many drinks containing alcohol do you have on a typical day when you are drinking?: 1 or 2 3. How often do you have six or more drinks on one occasion?: Never Total Score: 1 Score Reviewed/Action Taken: Yes ABRIL-7 AMB Questionnaire ABRIL-7 Date ABRIL - 7 assessed: 05/23/24 Feeling nervous, anxious, or on edge: 3 = Nearly every day Not being able to stop or control worryin = Nearly every day Worrying too much about different things: 3 = Nearly every day Trouble relaxin = Nearly every day Being so restless that it is hard to sit still: 3 = Nearly every day Becoming easily annoyed or irritable: 2 = More than half the days Feeling afraid as if something awful might happen: 3 = Nearly every day Total ABRIL-7 score (0-4 normal; 5-9 mild; 10-14 moderate; 15-21 severe): 20 Source: Developed by Drs. Herrera Bauer, Junie Singh, Ruben Goddard and colleagues, with an educational anatoliy from [employer]. ABRIL-7 Assessment Billing ABRIL-7 Assessment Tool: ABRIL-7 Assessment 83529 Review of Systems Const All systems reviewed & are unremarkable except as noted in HPI and below Eyes Reports no additional complaints ENT Reports no additional complaints Card Reports no additional complaints Resp Reports no additional complaints GI Reports no additional complaints Reports no additional complaints Physical exam (Primary Care) Vital Signs: Last Vital Signs Pulse 92 05/23/24 12:04 BP 126/76 05/23/24 12:04 Pulse Ox 99 05/23/24 12:04 Oxygen Delivery Method Room Air 05/23/24 12:04 BMI result Body Mass Index 24.2 Tobacco/Smoking Status: Tobacco use Status Tobacco use date assessed 05/23/24 05/23/24 12:06 Patient Tobacco Use Status Never used Tobacco 05/23/24 12:06 e-Cigarette/Vaping Use Currently Using 05/23/24 12:06 PHQ-9: PHQ-9 Score PHQ-9: Total score 13 05/23/24 12:22 Depression Screening Interpretation: Positive (ESTABLISHED WITH A PSYCHIATRIST AND THERAPY) Depression Screening Follow-up: Existing condition and In treatment Thrive Assessment: Date of Thrive Assessment Date Thrive assessed 05/23/24 05/23/24 12:06 Currently or been in a relationship where the following occur: I choose not to answer Const General: no acute distress HENMT Head: Yes normal to inspection Face and sinus: Yes normal facial exam Teeth and gingiva: dentition normal Eyes General: appearance normal, both eyes and all related structures Resp Effort & Inspection: normal respiratory effort Auscultation: clear to auscultation bilaterally Cardio Rhythm: regular rhythm Heart sounds: S1 normal heart sound present and S2 normal heart sound present GI Inspection: Yes normal to inspection Palpation (GI): Soft to palpation Percussion: Yes normal to percussion Auscultation: normal bowel sounds Assessment and Plan Assessment & Plan (1) Annual physical exam: Code(s): Z00.00 - Encounter for general adult medical examination without abnormal findings Plan: Well-balanced diet regular physical activity discussed with the patient. She will have a Pap smear by obstetrician gynecologist (2) Depression: Comment: ESTABLISHED WITH A PSYCHIATRIST AND A THERAPIST Code(s): F32.9 - Major depressive disorder, single episode, unspecified Plan: Follow-up with psychiatry Medications: Refilled valacyclovir (Valtrex) 500 mg PO BID 180 tabs 3RF Coding Level of Care Code Est Pt Prev Care 18-39y(70430) Diagnoses Annual physical exam Z00.00 Depression F32.9 Additional Codes ABRIL-7 Assessment Billing - ABRIL-7 Assessment Tool: ABRIL-7 Assessment 96085 ([id number])
== END 2024-05-23 13:06 | disposition home or self-care (01) ==
PROVIDERS: PCP Internal Medicine; Visit Provider Internal Medicine
DX: Z00.00 Encounter for general adult medical examination without abnormal findings (principal); F32.9 Major depressive disorder, single episode, unspecified
CPT/HCPCS: 99395

== ENCOUNTER 2024-06-04 09:45 | Outpatient (AMB) | payer OTHER, SELFPAY ==
--- NOTE | 2024-06-04 09:52 | A.OFFVIS_ITS ---
Vital Signs 06/04/24 09:54 Height 5 ft 3 in Weight 134 lb BMI 23.7 BP 98/60 Intake Visit Reasons: New patient Annual Voyage Management System Operator Required: No Information Interpreted: clinical only Head Of Integrated Media: Head Of Integrated Media Present Allergies blueberry Allergy (Intermediate, Verified 06/04/24 10:00) HIVES Sulfa (Sulfonamide Antibiotics) Allergy (Unknown, Verified 06/04/24 10:00) immunity morphine Allergy (Verified 06/04/24 10:00) chest pressure, panic attack sulfamethoxazole [From Bactrim] Adverse Reaction (Verified 06/04/24 10:00) Unknown trimethoprim [From Bactrim] Adverse Reaction (Verified 06/04/24 10:00) Unknown blueberries as a fruit, not ju Allergy (Unknown, Uncoded 06/04/24 10:00) hives/urticaria Medication List - Last Reconciled 06/04/24 by Alesia Reed CNM condoms - female (FC2 Female Condom) As directed lamotrigine 100 mg PO DAILY sertraline 50 mg PO DAILY valacyclovir (Valtrex) 500 mg PO BID Is last menstrual period known: Yes Last menstrual period: 05/05/24 Do you need a note to return to daycare/school/sports/work: No HPI HPI New patient Annual: Details: 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 She leaves she had an abnormal Pap some years ago but does not remember when and she would like full screening. She is male partner, has not 8-year-old daughter. She had a breast mass that is being followed and has been shown to be benign and she gets her regular screenings ordered by her primary.. She is on some mental health medications which are working well for her. She is on Valtrex which she takes prophylactically at this point for oral herpes which is helping to prevent very frequent oral outbreaks. She is open to full STI testing. She has a history of a vaginal and she had a retained placenta with manual removal afterwards however 2 months later she continued to have symptoms and ended up with a D&C that produced necrotic placental tissue left inside. She has regular cycles they are shorter than they used before she gave . They last about 3 to maybe 4 days where they used to be like 7. Her has a vasectomy so she does not need to worry about control. [facility] Medical History Rectus sheath hematoma Annual physical exam Benign heart murmur Post depression Depression Vitamin B 12 deficiency Vitamin D deficiency ABRIL (generalized anxiety disorder) Surgical History History of dilation and curettage History of tooth extraction Family History Father Medical history non-contributory Mother History of ITP Cirrhosis Head injury Maternal Grandmother Cancer Maternal Grandfather No problems noted. Paternal Grandfather No problems noted. Paternal Grandmother No problems noted. Sister No problems noted. Daughter No problems noted. Social History Household Members Other:: , 4 y/o and 18 y/o stepson, well balanced, works from home Housing: House Alcohol intake: never Patient Tobacco Use Status: Never used Tobacco e-Cigarette/Vaping Use: Currently Using service: No Current occupational status: employed Cognitive needs: No Hearing needs: No Vision needs: Yes Female Reproductive History Menstrual Age of Menarche: 10 Duration of menses: <3 days Date of last menstrual period: 05/05/24 control method: none Total pregnancies: 1 Full term: 1 Date of last pap smear: 09/17/20 (negative, 2018,negper patient) History of abnormal pap smear: Yes (unsure date) Physical Exam Vital Signs: Last Vital Signs BP 98/60 06/04/24 09:54 BMI result Body Mass Index 23.7 Const General: healthy appearing, comfortable, no acute distress, well developed and alert Nutritional Appearance: average body habitus Orientation/consciousness: patient oriented x3 Limitations: no limitations HEENT Head: Yes normocephalic Neck Neck: Yes normal visual inspection Chest Chest palpation & inspection: normal inspection of the chest Breast/axilla inspection: normal inspection of the breasts and normal inspection of the axillae Breast/axilla palpation: normal palpation of the breasts and normal palpation of the axillae Resp Effort & Inspection: normal respiratory effort GI Inspection: Yes normal to inspection, No Abdominal wall edema and No distended Palpation (GI): Soft to palpation and nontender Other: Exam normal vagina normal appearing whitish mucus consistent with 2nd half of cycle. Multiparous cervix pink smooth healthy appearing posterior uterus is mid position neither anteverted no retroverted mobile nontender adnexa not enlarged nontender very good tone with Kegel. General: Yes bladder normal to palpation External Female Exam: normal external appearance and normal appearance of the urethra Speculum Exam - Vagina: normal appearance of the vagina, normal palpation and normal vaginal discharge Speculum Exam - Cervix: normal appearance of the cervix, normal palpation and nontender Bimanual exam- vagina & uterus: normal bimanual exam, normal palpation, uterine size normal, bladder normal to palpation, consistency normal, normal palpation, uterine mobility normal, uterine shape normal, No Cervical tenderness present, non-tender and no cervical motion tenderness Bimanual Exam- Adnexa, other: normal adnexae, no masses, normal and No adnexal tenderness Neuro General: patient oriented x3 Assessment & Plan Assessment & Plan (1) Screening examination for sexually transmitted disease: Code(s): Z11.3 - Encounter for screening for infections with a predominantly sexual mode of transmission Category: Medical (2) Well woman exam with routine gynecological exam: Code(s): Z01.419 - Encounter for gynecological examination (general) (routine) without abnormal findings Category: Medical (3) Cervical cancer screening: Code(s): Z12.4 - Encounter for screening for malignant neoplasm of cervix Category: Medical (4) Relies on partner's vasectomy for primary method of contraception: Code(s): Z78.9 - Other specified health status Category: Social Hx Plan -----Discussed in this visit the following: healthy balanced diet, regular and consistent exercise, getting recommended health screens, doing the best she can for her particular health concerns, kegel exercises, pap smear screening and followup recommendations, mammography screening and SBE, normal changes in cycles in her life stage--- . Reviewed her health. Pap smear done she should receive a letter with the results she is on the portal so she can get testing for STI results. She has some fasting blood work in the system for her primary care providers so I recommend she get all the labs done at 1 time. Reviewed that her periods sound within normal range they often can change after childbirth. I did review her and retained placenta experience. RTC 1 year. Orders: Orders Hepatitis B Surface Antigen Today Z11.3 - Encounter for screening for infections with a predominantly sexual mode of transmission Hepatitis C Antibody Today Z11.3 - Encounter for screening for infections with a predominantly sexual mode of transmission Syphilis Screen Today Z11.3 - Encounter for screening for infections with a predominantly sexual mode of transmission HIV Ab/Ag Today Z11.3 - Encounter for screening for infections with a predominantly sexual mode of transmission Coding Level of Care Code New Pt Prev Care 18-39yr([id number] Diagnoses Screening examination for sexually transmitted disease Z11.3 Well woman exam with routine gynecological exam Z01.419 Cervical cancer screening Z12.4 Relies on partner's vasectomy for primary method of contraception Z78.9
[2024-06-04 09:54] VITALS: BP 98/60; BMI 23.7
== END 2024-06-04 11:45 | disposition home or self-care (01) ==
LOC: HO.HWSM 09:45
PROVIDERS: PCP Internal Medicine; Visit Provider Advanced Practice Midwife
DX: Z01.419 Encounter for gynecological examination (general) (routine) without abnormal findings (principal)
CPT/HCPCS: 99385

== ENCOUNTER 2024-06-04 09:45 | Outpatient (REF) | payer OTHER, SELFPAY ==
[2024-06-05 03:31] LABS: CT PCR NOT DETECTED (Not Detect.); NG PCR NOT DETECTED (Not Detect.)
[2024-06-05 10:29] LABS: Bacterial Vaginosis PCR NEGATIVE (Negative); Candida Group PCR NOT DETECTED (Not Detect); Candida glab krusei PCR NOT DETECTED (Not Detect); Trichomonas vaginalis PCR NOT DETECTED (Not Detect)
[2024-06-07 13:54] LABS: HPV mRNA E6/E7 Not Detected (Not Detected)
== END 2024-06-04 09:46 | disposition home or self-care (01) ==
LOC: HO.LAB 09:45
PROVIDERS: PCP Internal Medicine; Visit Provider Advanced Practice Midwife
DX: Z01.419 Encounter for gynecological examination (general) (routine) without abnormal findings (principal); Z11.51 Encounter for screening for human papillomavirus (HPV); Z20.2 Contact with and (suspected) exposure to infections with a predominantly sexual mode of transmission; N89.8 Other specified noninflammatory disorders of vagina
CPT/HCPCS: 0352U; 36415; 87491; 87591; 87624; 88175

== ENCOUNTER 2024-07-30 15:25 | Outpatient (REF) | payer OTHER, SELFPAY ==
--- NOTE | ~2024-07-30 | US_ITS ---
EXAMINATION: US DIAGNOSTIC ULTRASOUND BREAST, LEFT CLINICAL INFORMATION: 1 year follow-up (to establish two-year stability) for small complicated cyst versus fibroadenoma left breast, 11:00 axis, 6 cm from the nipple. COMPARISON: 01/26/2023, 07/27/2022. TECHNIQUE: Ultrasound of the left breast is performed with real-time muse scale imaging and color Doppler. Attention was given to the 11:00 axis left breast. FINDINGS: There is a stable and essentially unchanged rounded circumscribed mass versus complicated cyst with low-level internal echoes, no internal color Doppler signal, good through transmission, circumscribed margins, measuring stable 5 x 4 x 4 mm. There is been no change in this finding since the prior ultrasounds dating back to 09/26/2022. This is a benign entity and no further follow-up is recommended. Results are provided to the patient at time of visit by the technologist. US/US breast LT limited mamm only IMPRESSION: -No findings suspicious for malignancy. -Stable small mass versus complicated cyst left breast 11:00 axis. This has remained stable over 2 years and is a benign abnormality. -Recommend the patient resume annual screening mammography at age 38. ASSESSMENT: BI-RADS 2: Benign RECOMMENDATION: Routine annual mammography screening at age 38. This patient's information was entered into a reminder system with a target due date for their next mammogram. Electronically signed by: Praveen Perdomo MD 07/30/2024 05:01 PM EDT
== END 2024-07-30 15:26 | disposition home or self-care (01) ==
LOC: HO.MAMMO 15:25
PROVIDERS: PCP Internal Medicine; Visit Provider Internal Medicine
DX: N60.02 Solitary cyst of left breast (principal)
CPT/HCPCS: 76642

== ENCOUNTER → 2024-07-30 15:30 | Outpatient (BNV) | payer OTHER, SELFPAY | PROVIDERS: PCP Internal Medicine; Visit Provider Radiology Diagnostic Radiology | DX: N60.02 Solitary cyst of left breast (principal) | CPT/HCPCS: 76642 ==

== ENCOUNTER 2024-12-11 08:33 | Outpatient (AMB) | payer OTHER, SELFPAY ==
[2024-12-11 08:47] VITALS: BP 98/60; PULSE 116; TEMP 37.6; O2SAT 98
--- NOTE | 2024-12-11 08:47 | MHC.OFFWIV ---
Intake Vital Signs 12/11/24 08:47 Weight 141 lb BP 98/60 Blood Pressure Location Lt brachial Position Sitting Pulse 116 H Pulse Source Pulse Oximeter Temp 99.7 F Temp Source Oral Pulse Oximetry (%) 98 Intake Visit Reasons: EP pain on both ears Intake Note: Patient here for bilat ear pain that started yesterday. Patient Tobacco Use Status: Never used Tobacco Allergies blueberry Allergy (Intermediate, Verified 12/11/24 08:51) HIVES Sulfa (Sulfonamide Antibiotics) Allergy (Unknown, Verified 12/11/24 08:51) immunity morphine Allergy (Verified 12/11/24 08:51) chest pressure, panic attack sulfamethoxazole [From Bactrim] Adverse Reaction (Verified 12/11/24 08:51) Unknown trimethoprim [From Bactrim] Adverse Reaction (Verified 12/11/24 08:51) Unknown blueberries as a fruit, not ju Allergy (Unknown, Uncoded 12/11/24 08:51) hives/urticaria Do you need a note to return to daycare/school/sports/work: No HPI HPI Comments History of Present Illness Details SHe presents to office with ear pain x 2 days She said hx of ear infections in past Given nasal steroid via teleheallth yesterday without relief R side worse Pain level is 4/10 Ibuprofen helps She said she first started with ST and sinus pressure without congestion/nasal discharge + green mucus from nose No fever or chills PFSH Medical History Rectus sheath hematoma Annual physical exam Benign heart murmur Post depression Depression Vitamin B 12 deficiency Vitamin D deficiency ABRIL (generalized anxiety disorder) Surgical History History of dilation and curettage History of tooth extraction Family History Father Medical history non-contributory Mother History of ITP Cirrhosis Head injury Maternal Grandmother Cancer Maternal Grandfather No problems noted. Paternal Grandfather No problems noted. Paternal Grandmother No problems noted. Sister No problems noted. Daughter No problems noted. Social History Household Members Other:: , 4 y/o and 18 y/o stepson, well balanced, works from home Housing: House Alcohol intake: never Patient Tobacco Use Status: Never used Tobacco e-Cigarette/Vaping Use: Currently Using service: No Current occupational status: employed Cognitive needs: No Hearing needs: No Vision needs: Yes Female Reproductive History Menstrual Age of Menarche: 10 Review of Systems Const Denies chills, Denies fatigue and Denies fever(s) Eyes Denies change in vision ENT Reports otalgia, Denies nasal congestion, Denies nasal discharge, Reports sinus pressure and Reports sore throat Card Denies chest pain and Denies syncope Resp Denies cough GI Denies abdominal pain Musc Denies myalgias Neuro Denies syncope Endo Denies fatigue Physical Exam Vital Signs: Last Vital Signs Temp 99.7 F 12/11/24 08:47 Pulse 116 H 12/11/24 08:47 BP 98/60 12/11/24 08:47 Pulse Ox 98 12/11/24 08:47 General: Non-toxic, NAD. Speaking full sentences. Skin: Warm dry throughout Eye: EOMI HENT: Airway patent. Uvula midline. No pharyngeal erythema or edema. No SUPERVISOR MOLD YARD. No mastoid tenderness bilaterally. Bilateral canals clear. + large fluid effusion behind L TM without TM erythema, bulging or perforation R TM + erythematous and bulging with moderate effusion noted. No TM perforation or hemotympanum noted. Lymph: No0 lymphadenopathy noted Respiratory: CTA bilaterally. No wheezes, rales or rhonchi Cardiac: Tachycardic. No murmur Neurology: Alert. No aphasia or facial droop. Gait without abnormality Psych: Good mood and affect Assessment & Plan Assessment & Plan (1) Otitis media: Code(s): H66.90 - Otitis media, unspecified, unspecified ear Qualifiers: Otitis media type: serous Chronicity: acute Laterality: right Recurrence: non-recurrent Qualified Code(s): H65.01 - Acute serous otitis media, right ear Plan: Patient seen and evaluated. Augmentin for infection Discussed tylenol/motrin prn pain Patient gave verbal understanding and had no additional questions or concerns at time of discharge All questions answered Medications: New amoxicillin-pot clavulanate 875-125 mg 1 tab PO BID 14 tabs 0RF fluconazole (Diflucan) 100 mg PO DAILY 2 tabs 0RF Coding Level of Care Code Est Pt Level 3 (05581) Diagnoses Non-recurrent acute serous otitis media of right ear H65.01 Otitis media type: serous Chronicity: acute Laterality: right Recurrence: non-recurrent
--- OUTSIDE RECORDS SUMMARY | 2024-12-11 09:07 | XMS_ITS | Encounter Summary ---
Author Organization [facility] Address [address] [place] [address] Care Team Providers Care Pharmacy Cashier Name Role Phone Kim Gordon DO Primary Care Pro vider Unavailable Encounter Details Date Type Department Care Team Description 08/27/2018 Release of Information Medical Records [address] [place] [id number] Abstract, Provider Social History Tobacco Use Types Packs/Day Years Used Date Smoking Tobacco: Former Cigarettes Q uit: 11/03/2015 Alcohol Use Standard Drinks/Week Comments Yes 0 (1 standard drink = 0.6 oz pur e alcohol) occ-not with Sex Assigned at Date Recorded Not on file documented as of this encounter Plan of Treatment Not on file documented as of this encounter Visit Diagnoses Not on filedocumented in this encounter Care Teams Pharmacy Cashier Relationship Specialty Start Date End Date Kim Gordon DO PCP - General Internal Medicine 01/01/14 documented as of this encounter
--- OUTSIDE RECORDS SUMMARY | 2024-12-11 09:07 | XMS_ITS | Encounter Summary ---
Author Organization [facility] Address [address] [place] [address] Care Team Providers Care Nutritional Services Director Name Role Phone Kim Gordon DO Primary Care Pro vider Unavailable Reason for Referral * Non HINA (Routine) - Authorized/Booked Specialty Diagnoses / Procedures Referred By Sobeida ramirez Referred To Contact Dermatology Procedures REFERRAL TO DERMATOLOGY Kim Gordon DO [address] [place] [address] Derm/[address] [address] Referral ID Status Reason Start Date Expiration Date V isits Requested Visits Authorized [id number] Authorized/B ooked 05/21/2015 05/20/2016 1 1 Encounter Details Date Type Department Care Team Description 05/21/2015 Orders Only Adult Medicine [address] [address] Kim Gordon DO Acne, unspecified acne type (Primary Dx) Social History Tobacco Use Types Packs/Day Years Used Date Smoking Tobacco: Every Day Cigarettes Last attempted to quit: 01/03/2014 Alcohol Use Standard Drinks/Week Comments Yes 0 (1 standard drink = 0.6 oz pur e alcohol) occ Sex Assigned at Date Recorded Not on file documented as of this encounter Plan of Treatment Not on file documented as of this encounter Visit Diagnoses Diagnosis Acne, unspecified acne type- Primary documented in this encounter Care Teams Nutritional Services Director Relationship Specialty Start Date End Date Kim Gordon DO PCP - General Internal Medicine 01/01/14 documented as of this encounter
--- OUTSIDE RECORDS SUMMARY | 2024-12-11 09:07 | XMS_ITS | Encounter Summary ---
Author Organization [facility] Address [address] [place] [address] Care Team Providers Care Scouring Machine Operator Name Role Phone Kim Gordon DO Primary Care Pro vider Unavailable Encounter Details Date Type Department Care Team Description 05/10/2015 Pt. Non Urgent Medic al Question Adult Medicine [address] [address] Kim Gordon DO Social History Tobacco Use Types Packs/Day Years Used Date Smoking Tobacco: Every Day Cigarettes Last attempted to quit: 01/03/2014 Alcohol Use Standard Drinks/Week Comments Yes 0 (1 standard drink = 0.6 oz pur e alcohol) occ Sex Assigned at Date Recorded Not on file documented as of this encounter Progress Notes * Dayana Rick M.A. - 05/11/2015 8:04 AM EDTFrom: Nu Larsen To: Kim Vincent DO Sent: 05/10/2015 10:57 PM EDT Subject: Foam Rubber Curer Giovanna, Can you please submit a referral request for a wind energy engineer? At age 24, I suddenly have acne and it is getting worse and worse. Thank you. documented in this encounter Plan of Treatment Not on file documented as of this encounter Visit Diagnoses Not on filedocumented in this encounter Care Teams Scouring Machine Operator Relationship Specialty Start Date End Date Kim Gordon DO PCP - General Internal Medicine 01/01/14 documented as of this encounter
== END 2024-12-11 09:16 | disposition home or self-care (01) ==
PROVIDERS: PCP Internal Medicine; Visit Provider Physician Assistant
DX: H65.01 Acute serous otitis media, right ear (principal)

== ENCOUNTER → 2024-12-11 08:33 | Outpatient (BNVA) | payer OTHER, SELFPAY | PROVIDERS: PCP Internal Medicine ==

== ENCOUNTER 2024-12-23 08:43 | Outpatient (REF) | payer OTHER, SELFPAY ==
--- OUTSIDE RECORDS SUMMARY | 2024-12-23 09:50 | XMS_ITS | Encounter Summary ---
Author Organization [facility] Address [address] [place] [address] Care Team Providers Care Manufacturing Machine Operator Name Role Phone Kim Gordon DO Primary Care Pro vider Unavailable Reason for Referral * Non HINA (Routine) - Authorized/Booked Specialty Diagnoses / Procedures Referred By Sobeida ramirez Referred To Contact Dermatology Procedures REFERRAL TO DERMATOLOGY Kim Gordon DO [address] [place] [address] Derm[address] [address] Referral ID Status Reason Start Date Expiration Date V isits Requested Visits Authorized [id number] Authorized/B ooked 05/21/2015 05/20/2016 1 1 Encounter Details Date Type Department Care Team Description 05/21/2015 Orders Only Adult Medicine [address] [address] Kim Gordon DO Acne, unspecified acne type [...] Primary documented in this encounter Care Teams Manufacturing Machine Operator Relationship Specialty Start Date End Date Kim Gordon DO PCP - General Internal Medicine 01/01/14 documented as of this encounter
--- OUTSIDE RECORDS SUMMARY | 2024-12-23 09:50 | XMS_ITS | Encounter Summary ---
Author Organization [facility] Address [address] [place] [address] Care Team Providers Care Put In Beat Adjuster Name Role Phone Kim Gordon DO Primary Care Pro vider Unavailable Encounter Details Date Type Department Care Team Description 12/04/2017 Director Furniture Report Medical Records [address] [place] [id number] Kishan Clements MD Social History Tobacco Use Types Packs/Day Years [...] on filedocumented in this encounter Care Teams Put In Beat Adjuster Relationship Specialty Start Date End Date Kim Gordon DO PCP - General Internal Medicine 01/01/14 documented as of this encounter
--- OUTSIDE RECORDS SUMMARY | 2024-12-23 09:50 | XMS_ITS | Encounter Summary ---
Author Organization [facility] Address [address] [place] [address] Care Team Providers Care Staffing Program Manager Name Role Phone Kim Gordon DO Primary Care Pro vider Unavailable Encounter Details Date Type Department Care Team Description 12/29/2015 Release of Information Medical Records [address] [place] [id number] Abstract, Provider Social History Tobacco Use Types [...] on filedocumented in this encounter Care Teams Staffing Program Manager Relationship Specialty Start Date End Date Kim Gordon DO PCP - General Internal Medicine 01/01/14 documented as of this encounter
--- OUTSIDE RECORDS SUMMARY | 2024-12-23 09:50 | XMS_ITS | Encounter Summary ---
Author Organization [facility] Address [address] [place] [address] Care Team Providers Care Team Coordinator Name Role Phone Kim Gordon DO Primary Care Pro vider Unavailable Encounter Details Date Type Department Care Team Description 03/04/2014 Orders Only Adult Medicine [address] [address] Kim Gordon DO B12 deficiency; Vitamin D [...] deficiency documented in this encounter Care Teams Team Coordinator Relationship Specialty Start Date End Date Kim Gordon DO PCP - General Internal Medicine 01/01/14 documented as of this encounter
--- OUTSIDE RECORDS SUMMARY | 2024-12-23 09:50 | XMS_ITS | Encounter Summary ---
Author Organization [facility] Address [address] [place] [address] Care Team Providers Care Fishing Vessel Mate Name Role Phone Kim Gordon DO Primary Care Pro vider Unavailable Encounter Details Date Type Department Care Team Description 03/05/2014 Pt. Non Urgent Medic al Question Adult Medicine [address] [address] Kim Gordon DO Social History Tobacco Use [...] on filedocumented in this encounter Care Teams Fishing Vessel Mate Relationship Specialty Start Date End Date Kim Gordon DO PCP - General Internal Medicine 01/01/14 documented as of this encounter
--- OUTSIDE RECORDS SUMMARY | 2024-12-23 09:50 | XMS_ITS | Clinical Summary ---
Author Organization [facility] Address [address] [place] [address] Care Team Providers Care Surg Rn Name Role Phone Kim Gordon DO Primary [...] EPDS 13 Pt sees behavioral health at [facility] Supervision of normal first 12/25/2015 02/09/2016 Overview: 1. [facility] site: [place] 2. Delivery site: [facility] 3. Dating criteria: LMP confirmed by 1st [...] H RISK PATIENTS (#1) 2053 Care Teams Surg Rn Relationship Specialty Start Date End Date Kim Gordon DO PCP - General Internal Medicine 01/01/14
== END 2024-12-23 08:44 | disposition home or self-care (01) ==
LOC: HO.LAB 08:43
PROVIDERS: PCP Internal Medicine; Visit Provider Physician Assistant
DX: Z13.89 Encounter for screening for other disorder (principal)

== ENCOUNTER 2024-12-23 08:43 | Outpatient (AMB) | payer OTHER, SELFPAY ==
--- NOTE | 2024-12-23 08:47 | AM.OFFWIN_ITS ---
Intake Vital Signs 12/23/24 08:49 Weight 140 lb BP 92/60 Blood Pressure Location Lt brachial Position Sitting Pulse 102 H Pulse Source Pulse Oximeter Pulse Oximetry (%) 99 Oxygen Delivery Method Room Air Intake Visit Reasons: EP-rt ear block Intake Note: Patient here for right ear blockage after having an ear infection a week or so ago. Patient Tobacco Use Status: Never used Tobacco Allergies blueberry Allergy (Intermediate, Verified 12/23/24 08:49) HIVES Sulfa (Sulfonamide Antibiotics) Allergy (Unknown, Verified 12/23/24 08:49) immunity morphine Allergy (Verified 12/23/24 08:49) chest pressure, panic attack sulfamethoxazole [From Bactrim] Adverse Reaction (Verified 12/23/24 08:49) Unknown trimethoprim [From Bactrim] Adverse Reaction (Verified 12/23/24 08:49) Unknown blueberries as a fruit, not ju Allergy (Unknown, Uncoded 12/23/24 08:49) hives/urticaria Do you need a note to return to daycare/school/sports/work: No HPI HPI Comments History of Present Illness Details History - The patient is a 34 year old female pr esenting with throat pain and hearing loss following treatment for an ear infection. - Approximately 1.5 to 2 weeks prior, th e patient was treated with Augmentin for an Acute Otitis Media diagnosis. The medication course started on on December 11. - She reports the ear pain has resolved, but she now experiences right sided hearing loss. States it feels like her ear is swollen. - A new issue of raw throat pain for the last few days, particularly at the top back of the throat, has developed post-Augmentin. There is no pain during swall owing. Denies allergies - She also notes postnasal drip consiste nt with the possible sinus involvement, but there is no positive response to Flonase treatment as yet. Using Flonase properly. - The patient reports no episodes of fev er but has experienced fatigue. Physical Exam General: Cooperative, healthy appearing, comfortable and no acute distress Orientation/consciousness: Patient oriented x3 Limitations: No limitations Head: Normal to inspection Ears: Hearing impaired in one ear, external ears normal and TM's right with erythema, bilat with fluid Nose: Normal external nose present, Normal nares present and No nasal discharge present Face and sinus: Normal facial exam Mouth: Normal oral and palatal mucosa present and moist mucous membranes Throat: Yes tonsils normal, Yes uvula midline. Posterior oropharynx erythema, no exudates noted Eyes: Appearance normal, both eyes and all related structures Neck: Normal visual inspection Respiratory: Normal respiratory effort, able to speak in complete sentences, Actively coughing, no respiratory distress, not tachypneic, no tripod positioning and no use of accessory muscles Skin: No rashes or lesions noted Neuro: Patient oriented x3 Extremities: Normal to inspection and Yes no clubbing, cyanosis or edema PFSH Medical History Rectus sheath hematoma Annual physical exam Benign heart murmur Post depression Depression Vitamin B 12 deficiency Vitamin D deficiency ABRIL (generalized anxiety disorder) Surgical History History of dilation and curettage History of tooth extraction Family History Father Medical history non-contributory Mother History of ITP Cirrhosis Head injury Maternal Grandmother Cancer Maternal Grandfather No problems noted. Paternal Grandfather No problems noted. Paternal Grandmother No problems noted. Sister No problems noted. Daughter No problems noted. Social History Household Members Other:: , 4 y/o and 18 y/o stepson, well balanced, works from home Housing: House Alcohol intake: never Patient Tobacco Use Status: Never used Tobacco e-Cigarette/Vaping Use: Currently Using service: No Current occupational status: employed Cognitive needs: No Hearing needs: No Vision needs: Yes Female Reproductive History Menstrual Age of Menarche: 10 Review of Systems Const All systems reviewed & are unremarkable except as noted in HPI and below Physical Exam Vital Signs: Last Vital Signs Pulse 102 H 12/23/24 08:49 BP 92/60 12/23/24 08:49 Pulse Ox 99 12/23/24 08:49 Oxygen Delivery Method Room Air 12/23/24 08:49 Assessment & Plan Assessment & Plan (1) Acute sore throat: Code(s): J02.9 - Acute pharyngitis, unspecified Plan: as below (2) Acute effusion of right ear: Code(s): H65.191 - Other acute nonsuppurative otitis media, right ear Plan: The patient continues to experience hearing loss and newly developed throat pain despite completing a course of antibiotics for an ear infection. Sent flu COVID and RSV testing and sent patient for a mono test as her throat is extremely erythematous. Also prescribed prednisone 20 mg p.o. x5 days to help with the inflammation and fluid in her ears. If no resolution in her symptoms of hearing loss in the right ear after the prednisone, she should follow up with her PCP. Patient was informed and verbally consented to the use of an ambient scribe for clinic note documentation during this visit Orders: Orders Monotest Today J02.9 - Acute pharyngitis, unspecified SARS-CoV2/FLU/RSV Today R09.89 - Other specified symptoms and signs involving the circulatory and respiratory systems Medications: New prednisone 20 mg PO QAM 5 tabs 0RF Coding Level of Care Code Est Pt Level 3 (65562) Diagnoses Acute sore throat J02.9 Acute effusion of right ear H65.191
[2024-12-23 08:49] VITALS: BP 92/60; PULSE 102; O2SAT 99
--- OUTSIDE RECORDS SUMMARY | 2024-12-23 09:04 | XMS_ITS | Encounter Summary ---
Author Organization [facility] Address [address] [place] [address] Care Team Providers Care Developmental Mathematics Instructor Name Role Phone Kim Gordon DO Primary Care Pro vider Unavailable Encounter Details Date Type Department Care Team Description 11/28/2014 Pt. Non Urgent Medic al Question Adult Medicine [address] [address] Kim Gordon DO Social History Tobacco Use Types Packs/Day Years Used Date Smoking Tobacco: Every Day Cigarettes Last attempted to quit: 01/03/2014 Alcohol Use Standard Drinks/Week Comments Yes 0 (1 standard drink = 0.6 oz pur e alcohol) occ Sex Assigned at Date Recorded Not on file documented as of this encounter Progress Notes * Dayana Rick M.A. - 12/01/2014 8:20 AM ESTFrom: Nu Gallagher To: Kim Vincent DO Sent: 11/28/2014 10:35 PM EST Subject: UTI Hello, On November 24, I had severe symptoms of a UTI including very bad pain and frequency. I have a history of reoccurring UTIs and have been in the ER twice when left untreated properly. I have been drinking lots of water and feel significantly better, but still have mild pain. As such, I was hoping to arrange an appointment as soon as possible to review the options of antibiotics. I will make myself available for the soonest possible appointment, if you'd be so kind. Thank you for your time documented in this encounter Plan of Treatment Not on file documented as of this encounter Visit Diagnoses Not on filedocumented in this encounter Care Teams Developmental Mathematics Instructor Relationship Specialty Start Date End Date Kim Gordon DO PCP - General Internal Medicine 01/01/14 documented as of this encounter
--- OUTSIDE RECORDS SUMMARY | 2024-12-23 09:05 | XMS_ITS | Encounter Summary ---
Author Organization [facility] Address [address] [place] [address] Care Team Providers Care Bioinformatics Software Engineer Name Role Phone Kim Gordon DO Primary Care Pro vider Unavailable Reason for Referral * Non HINA (Routine) - Authorized/Booked Specialty Diagnoses / Procedures Referred By Sobeida ramirez Referred To Contact Dermatology Procedures REFERRAL TO DERMATOLOGY Kim Gordon DO [address] [place] [address] Derm/[address] [address] Referral ID Status Reason Start Date Expiration Date V isits Requested Visits Authorized [id number] Authorized/B ooked 05/21/2015 05/20/2016 1 1 Encounter Details Date Type Department Care Team Description 05/21/2015 Orders Only Adult Medicine [address] [address] Kim Gordon DO Acne, unspecified acne type [...] Primary documented in this encounter Care Teams Bioinformatics Software Engineer Relationship Specialty Start Date End Date Kim Gordon DO PCP - General Internal Medicine 01/01/14 documented as of this encounter
--- OUTSIDE RECORDS SUMMARY | 2024-12-23 09:05 | XMS_ITS | Clinical Summary ---
Author Organization [facility] Address [address] [place] [address] Care Team Providers Care Paper And Pulp Mill Worker Name Role Phone Kim Gordon DO Primary Care Pro vider Unavailable Allergies Active Allergy Reactions Severity Noted Date Comments Blueberry Flavor Hives/Urticaria 11/04/2015 Blueberries as a fruit, not just flavoring Medications Medication Sig Dispensed Refills Start Date End Date Status Multiple Vitamins-Minerals (MULTIVITAMIN OR) Take by mouth daily. 0 Active norethindrone (MICRONOR) 0.35 MG tablet Take 1 tablet by mouth daily. 0 Active ferrous sulfate 325 (65 FE) MG tablet Take 1 tablet by mouth daily. 0 Active Cholecalciferol (VITAMIN D) 2000 UNITS Cap Take 1 Cap by mouth daily. 0 Active sertraline (ZOLOFT) 50 MG tablet Take 1 Tab by mouth daily. 30 Tab 2 07/13/2017 Active Active Problems Problem Noted Date Iron deficiency anemia due to chronic bl ood loss 11/23/2017 Fear of needles 04/28/2014 Vitamin D deficiency 03/04/2014 B12 deficiency 03/04/2014 Panic attacks Anxiety Resolved Problems Problem Noted Date Resolved Date Depression during in first trimester 0 12/28/2015 02/09/2016 Overview: 12/28/2015 EPDS 13 Pt sees behavioral health at [facility] Supervision of normal first 12/25/2015 02/09/2016 Overview: 1. [facility] site: [place] 2. Delivery site: [facility] 3. Dating criteria: LMP confirmed by 1st trimester ultrasound 3. Blood type: O Pos 4. Genetic screening: Date: Result: 5. GBS: Date: 6. FOB name: Jacek 7. Plans A. Epidural or other pain management - Natural B. Labor support identified - C. Tdap - Date: D. Breast or Bottle feed: breast E. Baby's name - F. Circumcision - Family History Medical History Relation Name Comments alcoholism [Other] Father anxiety [Other] Mother itp, ptsd. a lcohol abuse. Hypercholesterolemia Paternal Grandfather CA Breast Negative Hx CA Colon Negative Hx CA Ovarian Negative Hx Relation Name Status Comments Father Alive Mother Paternal Grandfather Social History Tobacco Use Types Packs/Day Years Used Date Smoking Tobacco: Former Cigarettes Q uit: 11/03/2015 Alcohol Use Standard Drinks/Week Comments Yes 0 (1 standard drink = 0.6 oz pur e alcohol) occ-not with Sex Assigned at Date Recorded Not on file Last Filed Vital Signs Vital Sign Reading Time Taken Comments Blood Pressure 108/66 11/23/2017 3:02 PM EST Pulse 82 11/23/2017 3:02 PM EST Temperature 36.7 ??C (98 ??F) 11/23/2017 3:02 PM EST Respiratory Rate 16 11/23/2017 3:02 PM EST Oxygen Saturation 98% 07/30/2015 9:01 AM EDT Inhaled Oxygen Concentration - - Weight 61.1 kg (134 lb 11.2 oz) 11/23/2017 3:02 PM EST Height 160 cm (5' 3 ) 11/23/2017 3:02 PM EST Body Mass Index 23.86 11/23/2017 3:02 PM EST Plan of Treatment Health Maintenance Due Date Last Done Comments Covid-19 Vaccine (#1) 02/20/1989 TOBACCO CHECK/ADVISE 2006 DTAP/TDAP/TD (1 - Tdap) 2007 CERVICAL CANCER SCREENING 03/13/2017 03/13/2014 BASELINE HEALTH EXAM 18-39 11/26/202211/26, 11/23/2017, 12/08/2014, Additional history exists CHOLESTEROL SCREENING 11/26/2022 11/26/2017, 015 INFLUENZA (#1) 2024 BMI CHECK/ADVISE 10/16/2024 PNEUMOCOCCAL VACCINE FOR HIG H RISK PATIENTS (#1) 2053 Care Teams Paper And Pulp Mill Worker Relationship Specialty Start Date End Date Kim Gordon DO PCP - General Internal Medicine 01/01/14
--- OUTSIDE RECORDS SUMMARY | 2024-12-23 09:05 | XMS_ITS | Encounter Summary ---
Author Organization [facility] Address [address] [place] [address] Care Team Providers Care Hydrological Technical Officer Name Role Phone Kim Gordon DO Primary Care Pro vider Unavailable Encounter Details Date Type Department Care Team Description 03/04/2014 Orders Only Adult Medicine [address] [address] Kim Gordon DO B12 deficiency; Vitamin D deficiency Social History Tobacco Use Types Packs/Day Years Used Date Smoking Tobacco: Former Cigarettes Q uit: 01/03/2014 Alcohol Use Standard Drinks/Week Comments Not Asked 0 (1 standard drink = 0.6 oz pur e alcohol) Sex Assigned at Date Recorded Not on file documented as of this encounter Plan of Treatment Not on file documented as of this encounter Visit Diagnoses Diagnosis B12 deficiency Other B-complex deficiencies Vitamin D deficiency Unspecified vitamin D deficiency documented in this encounter Care Teams Hydrological Technical Officer Relationship Specialty Start Date End Date Kim Gordon DO PCP - General Internal Medicine 01/01/14 documented as of this encounter
--- OUTSIDE RECORDS SUMMARY | 2024-12-23 09:05 | XMS_ITS | Encounter Summary ---
Author Organization [facility] Address [address] [place] [address] Care Team Providers Care Adjunct Phlebotomy Instructor Name Role Phone Kim Gordon DO Primary Care Pro vider Unavailable Encounter Details Date Type Department Care Team Description 05/10/2015 Pt. Non Urgent Medic al Question Adult Medicine [address] [address] Kim Gordon DO Social History Tobacco Use [...] DO Sent: 05/10/2015 10:57 PM EDT Subject: Fisher Giovanna, Can you please submit a referral request for a commercial agent? At age 24, I suddenly have acne and it is getting worse and worse. Thank you. documented in this encounter Plan of Treatment Not on file documented as of this encounter Visit Diagnoses Not on filedocumented in this encounter Care Teams Adjunct Phlebotomy Instructor Relationship Specialty Start Date End Date Kim Gordon DO PCP - General Internal Medicine 01/01/14 documented as of this encounter
--- OUTSIDE RECORDS SUMMARY | 2024-12-23 09:05 | XMS_ITS | Encounter Summary ---
Author Organization [facility] Address [address] [place] [address] Care Team Providers Care Toll Mechanic Name Role Phone Kim Gorodn DO Primary Care Pro vider Unavailable Encounter Details Date Type Department Care Team Description 03/05/2014 Pt. Non Urgent Medic al Question Adult Medicine [address] [address] Kim Gordon DO Social History Tobacco Use [...] on filedocumented in this encounter Care Teams Toll Mechanic Relationship Specialty Start Date End Date Kim Gordon DO PCP - General Internal Medicine 01/01/14 documented as of this encounter
== END 2024-12-23 09:32 | disposition home or self-care (01) ==
PROVIDERS: PCP Internal Medicine; Visit Provider Physician Assistant
DX: J02.9 Acute pharyngitis, unspecified (principal); H65.191 Other acute nonsuppurative otitis media, right ear

== ENCOUNTER 2024-12-23 09:19 | Outpatient (REF) | payer OTHER, SELFPAY ==
[2024-12-23 11:55] LABS: Monotest Negative (Negative)
[2024-12-23 13:49] LABS: Influenza A PCR NEGATIVE (Negative); Influenza B PCR NEGATIVE (Negative); Resp Syncy Virus RNA Qual PCR NEGATIVE (Negative); SARS COV2 PCR INHOUSE NEGATIVE (Negative)
== END 2024-12-23 09:20 | disposition home or self-care (01) ==
LOC: HO.HMGCLDS 09:19
PROVIDERS: PCP Internal Medicine; Visit Provider Physician Assistant
DX: J02.9 Acute pharyngitis, unspecified (principal); R09.89 Other specified symptoms and signs involving the circulatory and respiratory systems
CPT/HCPCS: 0241U; 36415; 86308

== ENCOUNTER 2025-01-14 10:38 | Outpatient (AMB) | payer OTHER, SELFPAY ==
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
[2025-01-14 10:42] VITALS: BP 94/60; PULSE 86; RESP 18; TEMP 36.8; O2SAT 98; BMI 25.3
== END 2025-01-14 12:03 | disposition home or self-care (01) ==
LOC: HO.HMCC 10:39
PROVIDERS: PCP Internal Medicine; Visit Provider Internal Medicine
DX: H65.90 Unspecified nonsuppurative otitis media, unspecified ear (principal)

== ENCOUNTER → 2025-01-14 10:38 | Outpatient (BNVA) | payer OTHER, SELFPAY | PROVIDERS: PCP Internal Medicine; Visit Provider Internal Medicine | DX: H65.90 Unspecified nonsuppurative otitis media, unspecified ear (principal); J30.9 Allergic rhinitis, unspecified | CPT/HCPCS: 96127 ==

== ENCOUNTER 2025-06-02 14:08 | Outpatient (AMB) | payer OTHER, SELFPAY ==
--- NOTE | 2025-06-02 14:18 | AM.OFFWIN_ITS ---
Intake Vital Signs 06/02/25 14:30 Height 5 ft 3 in Weight 145 lb BMI 25.7 BP 100/72 Blood Pressure Location Lt brachial Position Sitting Pulse 69 Pulse Source Pulse Oximeter Temp 98.4 F Temp Source Oral Pulse Oximetry (%) 99 Oxygen Delivery Method Room Air Intake Visit Reasons: EP Dropped object on foot, large lump Intake Note: presents with left foot pain, bruising a little over a week ago 05/24/2025, now developed nodule left lateral foot Patient Tobacco Use Status: Never used Tobacco Allergies blueberry Allergy (Intermediate, Verified 06/02/25 14:33) HIVES Sulfa (Sulfonamide Antibiotics) Allergy (Unknown, Verified 06/02/25 14:33) immunity morphine Allergy (Verified 06/02/25 14:33) chest pressure, panic attack sulfamethoxazole (From Bactrim) Adverse Reaction (Verified 06/02/25 14:33) Unknown trimethoprim (From Bactrim) Adverse Reaction (Verified 06/02/25 14:33) Unknown blueberries as a fruit, not ju Allergy (Unknown, Uncoded 01/14/25 10:42) hives/urticaria Do you need a note to return to daycare/school/sports/work: No HPI HPI Comments History of Present Illness Details History of Present Illness - The patient is a 34-year-old female pr esenting with evaluation of foot injury due to heavy object trauma. - The patient dropped a 200-pound metal object on her foot approximately a week ago on 05/24, resulting in swelling and bruising. - A new painful bulge and a red squiggle appeared shortly after the injury, with tenderness and radiating pain upon touch. - The symptoms have persisted without adler bsiding, and the patient is concerned about potential clotting and fracture. - She has been taking tylenol but has no t had too much pain. - She is worried about a clot due to the red bump on the foot. - She denies numbness, tingling, ankle p ain, calf pain, or knee pain. Physical Exam General: Cooperative, healthy appearing, comfortable, no acute distress and well developed Orientation: Patient oriented x3 Respiratory: Normal respiratory effort and able to speak in complete sentences. Clear to auscultation bilaterally Cardiovascular: Regular rate and rhythm. Normal S1 and S2. Pulses are 2+ on the left foot. Skin: Contusion noted on the dorsal aspect of the left foot. Small raised area of erythema noted on the left lateral aspect of the foot. No edema noted. No TTP of the forefoot or plantar fascia. No TTP of the calcaneous. Neuro: Patient oriented x3. Sensation intact. Extremities: Ambulates with steady gait. Strength is 5/5 on the LE bilaterally. Patient was informed and verbally consented to the use of an ambient scribe for clinic note documentation during this visit. [facility] Medical History Rectus sheath hematoma Annual physical exam Benign heart murmur Post depression Depression Vitamin B 12 deficiency Vitamin D deficiency ABRIL (generalized anxiety disorder) Surgical History History of dilation and curettage History of tooth extraction Family History Father Medical history non-contributory Mother History of ITP Cirrhosis Head injury Maternal Grandmother Cancer Maternal Grandfather No problems noted. Paternal Grandfather No problems noted. Paternal Grandmother No problems noted. Sister No problems noted. Daughter No problems noted. Social History Household Members Other:: , 4 y/o and 18 y/o stepson, well balanced, works from home Housing: House Alcohol intake: never Patient Tobacco Use Status: Never used Tobacco e-Cigarette/Vaping Use: Currently Using service: No Current occupational status: employed Cognitive needs: No Hearing needs: No Vision needs: Yes Female Reproductive History Menstrual Age of Menarche: 10 Review of Systems Const All systems reviewed & are unremarkable except as noted in HPI and below Physical Exam Vital Signs: Last Vital Signs Temp 98.4 F 06/02/25 14:30 Pulse 69 06/02/25 14:30 BP 100/72 06/02/25 14:30 Pulse Ox 99 06/02/25 14:30 Oxygen Delivery Method Room Air 06/02/25 14:30 BMI result Body Mass Index 25.7 Results Reviewed Results Reviewed: reviewed the x-ray in the office Assessment & Plan Assessment & Plan (1) Contusion of left foot: Code(s): S90.32XA - Contusion of left foot, initial encounter Qualifiers: Encounter type: initial encounter Qualified Code(s): S90.32XA - Contusion of left foot, initial encounter Plan Most likely contusion vs fracture vs sprain Plan - rest, ice and elevation - wear post-op shoe - tylenol or motrin as needed for pain - An x-ray of the foot is recommended to assess for possible fracture. - Reassurance provided regarding low likelihood of clotting due to the nature of the injury. - Follow up with her PCP. Orders: Orders XR foot LT min 3V Today M79.672 - Pain in left foot Coding Level of Care Code Est Pt Level 4 (57130) Diagnoses Contusion of left foot, initial encounter S90.32XA Encounter type: initial encounter
[2025-06-02 14:30] VITALS: BP 100/72; PULSE 69; TEMP 36.9; O2SAT 99; BMI 25.7
== END 2025-06-02 15:28 | disposition home or self-care (01) ==
PROVIDERS: PCP Internal Medicine; Visit Provider Physician Assistant Medical
DX: S90.32XA Contusion of left foot, initial encounter (principal)

== ENCOUNTER 2025-06-02 14:08 | Outpatient (REF) | payer OTHER, SELFPAY ==
--- NOTE | ~2025-06-02 | XR_ITS ---
EXAMINATION: XR FOOT, LEFT CLINICAL INFORMATION: M79.672 - Pain in left foot COMPARISON: None available. TECHNIQUE: AP, lateral, and oblique views of the left foot. FINDINGS: No acute cortical disruption or malalignment. No lytic or blastic lesions. No bony erosions. No metallic or radiopaque foreign body. No subcutaneous emphysema. No joint effusion. No calcaneal spur. XR/XR foot LT min 3V IMPRESSION: Normal x-ray, left foot. Electronically signed by: Amador Vazquez MD 06/02/2025 03:16 PM EDT
== END 2025-06-02 14:09 | disposition home or self-care (01) ==
LOC: HO.HMGCX 14:08
PROVIDERS: PCP Internal Medicine; Visit Provider Physician Assistant Medical
DX: S90.32XA Contusion of left foot, initial encounter (principal); W20.8XXA Other cause of strike by thrown, projected or falling object, initial encounter; M79.672 Pain in left foot
CPT/HCPCS: 73630

== ENCOUNTER → 2025-06-02 15:03 | Outpatient (BNV) | payer OTHER, SELFPAY | PROVIDERS: PCP Internal Medicine; Visit Provider Radiology Diagnostic Radiology | DX: M79.672 Pain in left foot (principal) | CPT/HCPCS: 73630 ==

== ENCOUNTER 2025-08-14 14:58 | Outpatient (AMB) | payer OTHER, SELFPAY ==
--- NOTE | 2025-08-14 15:19 | MHC.OFFVIS ---
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 no concerns today Sustainable Systems Analyst Required: No Information Interpreted: non-clinical & clinical Art Tracer: Art Tracer Present (terence) Accompanied by: Self / Same As Patient Allergies blueberry Allergy (Intermediate, Verified 06/02/25 14:33) HIVES Sulfa (Sulfonamide Antibiotics) Allergy (Unknown, Verified 06/02/25 14:33) immunity morphine Allergy (Verified 06/02/25 14:33) chest pressure, panic attack sulfamethoxazole (From Bactrim) Adverse Reaction (Verified 06/02/25 14:33) Unknown trimethoprim (From Bactrim) Adverse Reaction (Verified 06/02/25 14:33) Unknown blueberries as a fruit, not ju Allergy (Unknown, Uncoded 01/14/25 10:42) hives/urticaria Medication List - Last Reconciled 08/14/25 by Lupis De León LPN cholecalciferol (vitamin D3) 50 mcg PO DAILY condoms - female (FC2 Female Condom) As directed lamotrigine 100 mg PO DAILY sertraline 100 mg PO DAILY sertraline 75 mg PO DAILY valacyclovir (Valtrex) 500 mg PO BID PRN Is last menstrual period known: Yes Last menstrual period: 07/15/25 Do you need a note to return to daycare/school/sports/work: No HPI 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 She is also interested in getting on a method of control for herself. She was on the NuvaRing in the past and would like it to go back to that she is due for period any day now and feels that it is going to be starting. She is very knowledgeable about safer sex and self-care. [facility] Medical History Rectus sheath hematoma Annual physical exam Benign heart murmur Post depression Depression Vitamin B 12 deficiency Vitamin D deficiency ABRIL (generalized anxiety disorder) Surgical History History of dilation and curettage History of tooth extraction Family History (Updated 08/14/25 @ 15:25 by Lupis De León LPN) Father Medical history non-contributory Mother History of ITP Cirrhosis Head injury Maternal Grandmother Cancer Maternal Grandfather No problems noted. Paternal Grandfather No problems noted. Paternal Grandmother Cancer Sister No problems noted. Daughter No problems noted. Social History Household Members Other:: , 4 y/o and 18 y/o stepson, well balanced, works from home Housing: House Alcohol intake: never Patient Tobacco Use Status: Never used Tobacco e-Cigarette/Vaping Use: Currently Using service: No Current occupational status: employed Cognitive needs: No Hearing needs: No Vision needs: Yes Female Reproductive History Menstrual Age of Menarche: 10 Date of last menstrual period: 07/15/25 control method: other ( vysectomy) Total pregnancies: 1 Number of Living Children: 1 Date of last pap smear: 09/17/20 History of abnormal pap smear: No Physical Exam Vital Signs: Last Vital Signs BP 98/68 08/14/25 15:26 BMI result Body Mass Index 25.7 Const General: healthy appearing, comfortable, no acute distress, well developed and alert Nutritional Appearance: average body habitus Orientation/consciousness: patient oriented x3 Limitations: no limitations HEENT Head: Yes normocephalic Neck Neck: Yes normal visual inspection Chest Chest palpation & inspection: normal inspection of the chest Breast/axilla inspection: normal inspection of the breasts and normal inspection of the axillae Breast/axilla palpation: normal palpation of the breasts and normal palpation of the axillae Resp Effort & Inspection: normal respiratory effort GI Inspection: Yes normal to inspection, No Abdominal wall edema and No distended Palpation (GI): Soft to palpation and nontender Other: External exam within normal limits there is a small amount of whitish yellowish discharge at ce.rvix with some inflammation that is cervix we will await testing cervix slightly friable with Pap swabs taken for GC chlamydia trichomoniasis as well as bacterial vaginosis and yeast. Cervix is long close thick mobile nontender very deep in pelvis uterus midposition not enlarged adnexa is also nontender nonenlarged good tone with Kegel General: Yes bladder normal to palpation External Female Exam: normal external appearance and normal appearance of the urethra Speculum Exam - Vagina: normal appearance of the vagina, normal palpation and normal vaginal discharge Speculum Exam - Cervix: normal appearance of the cervix, normal palpation and nontender Bimanual exam- vagina & uterus: normal bimanual exam, normal palpation, uterine size normal, bladder normal to palpation, consistency normal, normal palpation, uterine mobility normal, uterine shape normal, No Cervical tenderness present, non-tender and no cervical motion tenderness Bimanual Exam- Adnexa, other: normal adnexae, no masses, normal and No adnexal tenderness Neuro General: patient oriented x3 Assessment & Plan Assessment & Plan (1) Screening examination for sexually transmitted disease: Code(s): Z11.3 - Encounter for screening for infections with a predominantly sexual mode of transmission Category: Medical (2) Well woman exam with routine gynecological exam: Code(s): Z01.419 - Encounter for gynecological examination (general) (routine) without abnormal findings Category: Medical (3) Cervical cancer screening: Comment: 06/04/2024 Pap is negative with negative HPV. Code(s): Z12.4 - Encounter for screening for malignant neoplasm of cervix Category: Medical (4) control counseling: Comment: Would like to start NuvaRing she had been on it before reviewed interactions with lamotrigine and she will be very aware and use backup if necessary. Code(s): Z30.09 - Encounter for other general counseling and advice on contraception Category: Medical Plan -----Discussed in this visit the following: healthy balanced diet, regular and consistent exercise, getting recommended health screens, doing the best she can for her particular health concerns, kegel exercises, pap smear screening and followup recommendations, mammography screening and SBE, normal changes in cycles in her life stage--- . Pap smear done as well as testing for GC chlamydia gonorrhea as well as bacterial vaginosis and yeast and she also desired blood tests for HIV hep B hep C and syphilis. Discussed that we do not normally test for herpes as it is very commonly beeen contracted 1 way or another, and blood tests are not conclusive of when they have have been exposed. Discussed the interactions and shared the monographs in the computer between lamotrigine and combination oral contraceptives and things to be aware of she is not too sure of symptoms of ovulation discussed various signs and she will be aware and use protection if necessary if there are signs and symptoms of ovulation. She is on the portal and can review her results herself reviewed that if anything is positive she and any partner we will be offered medication. We will see her in about 3 months more or less to see how she is doing on this method. Orders: Orders Bacterial Vaginosis Panel Today Z11.3 - Encounter for screening for infections with a predominantly sexual mode of transmission Hepatitis B Surface Antigen Today Z11.3 - Encounter for screening for infections with a predominantly sexual mode of transmission Hepatitis C Antibody Today Z11.3 - Encounter for screening for infections with a predominantly sexual mode of transmission Syphilis Screen Today Z11.3 - Encounter for screening for infections with a predominantly sexual mode of transmission HPV High risk Today Z00.00 - Encounter for general adult medical examination without abnormal findings Pap Smear Today Z00.00 - Encounter for general adult medical examination without abnormal findings CT NG by PCR Vag/Cerv Today Z11.3 - Encounter for screening for infections with a predominantly sexual mode of transmission HIV Ab/Ag Today Z11.3 - Encounter for screening for infections with a predominantly sexual mode of transmission Medications: New etonogestrel-ethinyl estradiol 0.12-0.015 mg/[address] for 3 weeks of a 4-week cycle 1 vag ring vaginal Q4W 3 ea 4RF Coding Level of Care Code Est Pt Prev Care 18-39y(23715) Diagnoses Screening examination for sexually transmitted disease Z11.3 Well woman exam with routine gynecological exam Z01.419 Cervical cancer screening Z12.4 control counseling Z30.09
[2025-08-14 15:26] VITALS: BP 98/68; BMI 25.7
== END 2025-08-14 16:16 | disposition home or self-care (01) ==
LOC: HO.HWSM 14:58
PROVIDERS: PCP Internal Medicine; Visit Provider Advanced Practice Midwife
DX: Z01.419 Encounter for gynecological examination (general) (routine) without abnormal findings (principal); Z11.3 Encounter for screening for infections with a predominantly sexual mode of transmission; Z30.09 Encounter for other general counseling and advice on contraception
CPT/HCPCS: 99395; 99459

== ENCOUNTER 2025-08-14 14:58 | Outpatient (REF) | payer OTHER, SELFPAY ==
[2025-08-15 02:04] LABS: Bacterial Vaginosis PCR NEGATIVE (Negative); Candida Group PCR NOT DETECTED (Not Detect); Candida glab krusei PCR DETECTED (Not Detect); Trichomonas vaginalis PCR NOT DETECTED (Not Detect)
[2025-08-15 02:36] LABS: CT PCR NOT DETECTED (Not Detect.); NG PCR NOT DETECTED (Not Detect.)
== END 2025-08-14 14:59 | disposition home or self-care (01) ==
LOC: HO.LNP 14:58
PROVIDERS: PCP Internal Medicine; Visit Provider Advanced Practice Midwife
DX: Z01.419 Encounter for gynecological examination (general) (routine) without abnormal findings (principal); Z00.00 Encounter for general adult medical examination without abnormal findings; Z30.09 Encounter for other general counseling and advice on contraception; Z20.2 Contact with and (suspected) exposure to infections with a predominantly sexual mode of transmission
CPT/HCPCS: 81515; 87491; 87591; 87626; 88175